=== PATIENT | female | born 1990 | race Caucasian/White ===

== ENCOUNTER 2017-08-07 12:32 | Emergency (ER) | payer MEDICAID, OTHER ==
[2017-08-07] MEDS ORDERED: Ondansetron 4 MG/2 ML SDV IVPUSH ONE ×2 (13:14→14:37)
[2017-08-07] MEDS ORDERED: Lactated Ringers 1,000 ML IV SCH (13:15)
--- NOTE | 2017-08-07 13:24 | EDM.PDOC ---
ED HPI GENERAL MEDICAL PROBLEM - General Chief Complaint: Abdominal Pain Stated Complaint: ABDOMINAL PAIN Time Seen by Provider: 08/07/17 13:05 Source of Information: Reports: Patient History Limitations: Reports: No Limitations - History of Present Illness INITIAL COMMENTS - FREE TEXT/NARRATIVE: HISTORY AND PHYSICAL: History of present illness: [Patient comes to the emergency room complaining of left lower quadrant abdominal pain. Her symptoms began at midnight last night and have continued into today. She is feeling gradually worse as the day goes on. Her pain started in the left lower part of her abdomen is gradually moving into the middle aspect. No right lower quadrant abdominal pain. Has not taken any medications for her symptoms. The pain is constant and is gradually worsening. She describes it as a sharp stabbing pain. Increased pain with taking a deep breath. Denies sore throat runny nose earaches. No recent illness or infection. She has not checked her temperature but has felt some warm flashes and chills. Feels nauseated which she rates as 7/10. Abdominal pain is 10/10. No vomiting. Had a normal bowel movement this morning. No blood in her stools. No pain with defecating. No burning with urination or blood in her urine. She denies low back pain. No muscle or joint aches or pains. She has not had anything to drink today. Is on Nexplanon for contraception. LMP was in July 2017.] Review of systems: As per history of present illness and below otherwise all systems reviewed and negative. Past medical history: As per history of present illness and as reviewed below otherwise noncontributory. Surgical history: As per history of present illness and as reviewed below otherwise noncontributory. Social history: No reported history of drug or alcohol abuse. Family history: As per history of present illness and as reviewed below otherwise noncontributory. Physical exam: HEENT: Atraumatic, normocephalic. Oral mucous members are pink and mildly dry. Neck supple, no lymphadenopathy. Lungs: Clear to auscultation, breath sounds equal bilaterally. No wheezing crackles or rales. Heart: S1S2, regular rate and rhythm. Abdomen: Bowel sounds are quiet throughout. Abdomen is soft and nondistended. She is tender with palpation over her left lower quadrant and suprapubic area. No masses guarding or rebound. No CVA tenderness. Pelvis: Stable nontender. Genitourinary: Deferred. Rectal: Deferred. Extremities: Atraumatic, negative for cords or calf pain. No cyanosis or edema to feet or lower legs. Neurovascular unremarkable. Neuro: Awake, alert, oriented. Motor and sensory unremarkable throughout. Exam nonfocal. Diagnostics: [CBC, CMP, UA, urine , amylase, lipase] Therapeutics: [1 L lactated Ringer's, Zofran 4 mg IV x2, Morphine 4mg IV, Toradol 30mg IV] Impression: [L adnexal cyst] Plan: [Discussed with patient that her lab results are completely normal, CT abdomen and pelvis shows L adnexal cyst. Alternate Tylenol and ibuprofen prn discomfort , follow up with PCP at [facility]. Strict return precautions are reviewed. All questions are answered and concerns are addressed. ] Definitive disposition and diagnosis as appropriate pending reevaluation and review of above. left lower abdominal pain Pain Score (Numeric/FACES): 10 - Related Data Allergies Allergy/AdvReac Type Severity Reaction Status Date / Time Penicillins Allergy Hives Verified 08/07/17 12:47 Sulfa (Sulfonamide Allergy Hives Verified 08/07/17 12:47 Antibiotics) Home Meds: Home Meds Implanted Control 08/07/17 [History] Sertraline [Zoloft] 100 mg PO DAILY 08/07/17 [History] Past Medical History Other OB/BYN History: Abnormal pap & LEAP Psychiatric History: Reports: Anxiety Oncologic (Cancer) History: Reports: Other (See Below) Other Oncologic History: pre cervical cancer. was removed. Other Dermatologic History: Eczema - Infectious Disease History Infectious Disease History: Reports: Chicken Pox - Past Surgical History HEENT Surgical History: Reports: Adenoidectomy, Tonsillectomy Female Surgical History: Reports: Section, LEEP Other Female Surgeries/Procedures: surgery on placenta during Social & Family History - Family History Family Medical History: Noncontributory - Tobacco Use Smoking Status *Q: Never Smoker Years of Tobacco use: 1 Used Tobacco, but Quit: Yes Month/Year Tobacco Last Used: 05/12 Second Hand Smoke Exposure: Yes - Caffeine Use Caffeine Use: Reports: Coffee, Soda, Tea - Alcohol Use Days Per Week of Alcohol Use: 0 - Recreational Drug Use Recreational Drug Use: No ED ROS GENERAL - Review of Systems Review Of Systems: ROS reveals no pertinent complaints other than HPI. ED EXAM, GI/ABD - Physical Exam Exam: See Below Course - Vital Signs Last Recorded V/S: Last Vital Signs Temp 99.4 F 08/07/17 15:29 Pulse 87 08/07/17 15:29 Resp 16 08/07/17 15:29 BP 125/72 08/07/17 15:29 Pulse Ox 100 08/07/17 15:29 - Orders/Labs/Meds Orders: Active Orders 24 hr Category Date Time Status HCG QUALITATIVE,URINE [URCHEM] Stat Lab 08/07/17 13:44 Ordered UA W/MICROSCOPIC [URIN] Stat Lab 08/07/17 13:44 Ordered Ketorolac [Toradol] Med 08/07/17 15:42 Once 30 mg IVPUSH ONETIME ONE Lactated Ringers [Ringers, Lactated] 1,000 ml Med 08/07/17 13:15 Active IV .BOLUS Medication Orders Lactated Ringer's (Ringers, Lactated) 1,000 mls @ 999 mls/hr IV .BOLUS PATSY Last Admin: 08/07/17 14:02 Dose: 999 mls/hr Labs: Laboratory Tests 08/07/17 08/07/17 08/07/17 Range/Units 13:26 13:26 13:44 WBC 10.72 (4.0-11.0) K/uL RBC 4.84 (4.30-5.90) M/uL Hgb 13.3 (12.0-16.0) g/dL Hct 39.5 (36.0-46.0) % MCV 81.6 (80.0-98.0) fL MCH 27.5 (27.0-32.0) pg MCHC 33.7 (31.0-37.0) g/dL RDW Std Deviation 41.1 (28.0-62.0) fl RDW Coeff of Radha 14 (11.0-15.0) % Plt Count 203 (150-400) K/uL MPV 10.30 (7.40-12.00) fL Neut % (Auto) 87.8 H (48.0-80.0) % Lymph % (Auto) 7.9 L (16.0-40.0) % [place] % (Auto) 4.1 (0.0-15.0) % Eos % (Auto) 0.0 (0.0-7.0) % Baso % (Auto) 0.2 (0.0-1.5) % Neut # (Auto) 9.4 H (1.4-5.7) K/uL Lymph # (Auto) 0.9 (0.6-2.4) K/uL [place] # (Auto) 0.4 (0.0-0.8) K/uL Eos # (Auto) 0.0 (0.0-0.7) K/uL Baso # (Auto) 0.0 (0.0-0.1) K/uL Nucleated RBC % 0.0 /100WBC Nucleated RBCs # 0 K/uL Sodium 136 (136-145) mmol/L Potassium 3.6 (3.5-5.1) mmol/L Chloride 101 (98-107) mmol/L Carbon Dioxide 24.7 (21.0-32.0) mmol/L BUN 9 (7.0-18.0) mg/dL Creatinine 0.7 (0.6-1.0) mg/dL Est Cr Clr Drug Dosing 110.55 mL/min Estimated GFR (MDRD) > 60.0 ml/min Glucose 109 H (74-106) mg/dL Calcium 9.3 (8.5-10.1) mg/dL Total Bilirubin 0.7 (0.2-1.0) mg/dL AST 17 (15-37) IU/L ALT 15 (14-63) IU/L Alkaline Phosphatase 67 (46-116) U/L Total Protein 7.7 (6.4-8.2) g/dL Albumin 4.3 (3.4-5.0) g/dL Globulin 3.4 (2.0-3.5) g/dL Albumin/Globulin Ratio 1.3 (1.3-2.8) Amylase 40 (25-115) U/L Lipase 113 (73-393) U/L Urine Color YELLOW Urine Appearance CLEAR Urine pH 6.0 (5.0-8.0) Ur Specific [place] 1.020 (1.001-1.035) Urine Protein NEGATIVE (NEGATIVE) mg/dL Urine Glucose (UA) NEGATIVE (NEGATIVE) mg/dL Urine Ketones 15 H (NEGATIVE) mg/dL Urine Occult Blood NEGATIVE (NEGATIVE) Urine Nitrite NEGATIVE (NEGATIVE) Urine Bilirubin NEGATIVE (NEGATIVE) Urine Urobilinogen 0.2 (<2.0) EU/dL Ur Leukocyte Esterase NEGATIVE (NEGATIVE) Urine RBC 0-1 (0-2/HPF) Urine WBC 0-1 (0-5/HPF) Ur Epithelial Cells FEW (NONE-FEW) Urine Bacteria RARE (NEGATIVE) Urine HCG, Qual (NEGATIVE) 08/07/17 Range/Units 13:44 WBC (4.0-11.0) K/uL RBC (4.30-5.90) M/uL Hgb (12.0-16.0) g/dL Hct (36.0-46.0) % MCV (80.0-98.0) fL MCH (27.0-32.0) pg MCHC (31.0-37.0) g/dL RDW Std Deviation (28.0-62.0) fl RDW Coeff of Radha (11.0-15.0) % Plt Count (150-400) K/uL MPV (7.40-12.00) fL Neut % (Auto) (48.0-80.0) % Lymph % (Auto) (16.0-40.0) % [place] % (Auto) (0.0-15.0) % Eos % (Auto) (0.0-7.0) % Baso % (Auto) (0.0-1.5) % Neut # (Auto) (1.4-5.7) K/uL Lymph # (Auto) (0.6-2.4) K/uL [place] # (Auto) (0.0-0.8) K/uL Eos # (Auto) (0.0-0.7) K/uL Baso # (Auto) (0.0-0.1) K/uL Nucleated RBC % /100WBC Nucleated RBCs # K/uL Sodium (136-145) mmol/L Potassium (3.5-5.1) mmol/L Chloride (98-107) mmol/L Carbon Dioxide (21.0-32.0) mmol/L BUN (7.0-18.0) mg/dL Creatinine (0.6-1.0) mg/dL Est Cr Clr Drug Dosing mL/min Estimated GFR (MDRD) ml/min Glucose (74-106) mg/dL Calcium (8.5-10.1) mg/dL Total Bilirubin (0.2-1.0) mg/dL AST (15-37) IU/L ALT (14-63) IU/L Alkaline Phosphatase (46-116) U/L Total Protein (6.4-8.2) g/dL Albumin (3.4-5.0) g/dL Globulin (2.0-3.5) g/dL Albumin/Globulin Ratio (1.3-2.8) Amylase (25-115) U/L Lipase (73-393) U/L Urine Color Urine Appearance Urine pH (5.0-8.0) Ur Specific [place] (1.001-1.035) Urine Protein (NEGATIVE) mg/dL Urine Glucose (UA) (NEGATIVE) mg/dL Urine Ketones (NEGATIVE) mg/dL Urine Occult Blood (NEGATIVE) Urine Nitrite (NEGATIVE) Urine Bilirubin (NEGATIVE) Urine Urobilinogen (<2.0) EU/dL Ur Leukocyte Esterase (NEGATIVE) Urine RBC (0-2/HPF) Urine WBC (0-5/HPF) Ur Epithelial Cells (NONE-FEW) Urine Bacteria (NEGATIVE) Urine HCG, Qual NEGATIVE (NEGATIVE) Meds: Medications Generic Name Dose Route Start Last Admin Trade Name Freq PRN Reason Stop Dose Admin Lactated Ringer's 1,000 mls @ 999 mls/hr 08/07/17 13:15 08/07/17 14:02 Ringers, Lactated IV 999 mls/hr .BOLUS PATSY Administration Discontinued Medications Generic Name Dose Route Start Last Admin Trade Name Freq PRN Reason Stop Dose Admin Iopamidol 85 ml 08/07/17 15:16 08/07/17 15:17 Isovue Multipack-370 (76%) IVPUSH 08/07/17 15:17 85 ml ONETIME ONE Administration Morphine Sulfate 4 mg 08/07/17 14:37 08/07/17 15:25 Morphine IVPUSH 08/07/17 14:38 4 mg ONETIME ONE Administration Ondansetron HCl 4 mg 08/07/17 13:14 08/07/17 14:04 Zofran IVPUSH 08/07/17 13:15 4 mg ONETIME ONE Administration Ondansetron HCl 4 mg 08/07/17 14:37 04/04/18 15:16 Zofran IVPUSH 08/07/17 14:38 4 mg ONETIME ONE Administration Departure - Departure Time of Disposition: 15:51 Disposition: Home, Self-Care 01 Condition: Good Clinical Impression: Adnexal cyst - Discharge Information Referrals: PCP,None [Primary Care Provider] - Forms: ED Department Discharge Additional Instructions: The following information is given to patients seen in the emergency department who are being discharged to home. This information is to outline your options for follow-up care. We provide all patients seen in our emergency department with a follow-up referral. The need for follow-up, as well as the timing and circumstances, are variable depending upon the specifics of your emergency department visit. If you don't have a primary care physician on staff, we will provide you with a referral. We always advise you to contact your personal physician following an emergency department visit to inform them of the circumstance of the visit and for follow-up with them and/or the need for any referrals to a consulting specialist. The emergency department will also refer you to a specialist when appropriate. This referral assures that you have the opportunity for follow-up care with a specialist. All of these measure are taken in an effort to provide you with optimal care, which includes your follow-up. Under all circumstances we always encourage you to contact your private physician who remains a resource for coordinating your care. When calling for follow-up care, please make the office aware that this follow-up is from your recent emergency room visit. If for any reason you are refused follow-up, please contact the [facility] emergency department at and asked to speak to the emergency department charge nurse. [facility] [address] [place] [id number] Follow-up with her local primary care provider at the clinic listed above in 48- 72 hours. Alternate Tylenol with ibuprofen. warm moist compresses may help with discomfort. Return to ER as needed as discussed. - My Orders Last 24 Hours: My Active Orders 08/07/17 13:15 Lactated Ringers [Ringers, Lactated] 1,000 ml IV .BOLUS 08/07/17 13:44 HCG QUALITATIVE,URINE [URCHEM] Stat UA W/MICROSCOPIC [URIN] Stat 08/07/17 15:42 Ketorolac [Toradol] 30 mg IVPUSH ONETIME ONE - Assessment/Plan Last 24 Hours: My Active Orders 08/07/17 13:15 Lactated Ringers [Ringers, Lactated] 1,000 ml IV .BOLUS 08/07/17 13:44 HCG QUALITATIVE,URINE [URCHEM] Stat UA W/MICROSCOPIC [URIN] Stat 08/07/17 15:42 Ketorolac [Toradol] 30 mg IVPUSH ONETIME ONE
[2017-08-07 14:28] LABS: CHLORIDE,CL 101 mmol/L (98-107); SODIUM,NA 136 mmol/L (136-145)
[2017-08-07] MEDS ORDERED: Morphine 4 MG/ML Syringe IVPUSH ONE (14:37)
[2017-08-07] MEDS ORDERED: Iopamidol 755 MG/ML 500 ML Multipack Bottle IVPUSH ONE (15:16)
--- NOTE | 2017-08-07 15:28 | CT ---
CT of the abdomen and pelvis with contrast. HISTORY: Left lower quadrant pain TECHNIQUE: Axial CT images were obtained of the abdomen and pelvis following administration of 85 mL of Isovue-370 in the right antecubital fossa without complication. Coronal and sagittal reconstructio ns obtained. FINDINGS: The lung bases are clear, no pleural effusion. The liver, spleen, adrenal glands, and pancreas appear normal. Cholelithiasis without evidence of cho lecystitis. No bulky retroperitoneal lymphadenopathy or abdominal ascites. Tiny fat-containing umbili kerrie hernia. The kidneys enhance and function symmetrically without evidence of obstructive uropathy. The large and small bowel are normal in caliber without evidence of obstruction. The appendix appears normal. No focal pericolonic inflammation or stranding. The urinary bladder is minimally filled. [place] josefina is grossly unremarkable. There is a 8.5 x 7 cm appearing left adnexal cyst. No significant free p elvic fluid. No free air. No suspicious osseous abnormalities identified. IMPRESSION: 1. Cholelithiasis without evidence of cholecystitis. 2. There is an 8.5 x 7 cm left adnexal cyst.
[2017-08-07 15:30] VITALS: BP 125/72
[2017-08-07] MEDS ORDERED: Ketorolac 30 MG/ML SDV IVPUSH ONE (15:42)
== END 2017-08-07 16:36 | disposition home or self-care (01) ==
LOC: MW.ED 12:32
DX: N83.8 Other noninflammatory disorders of ovary, fallopian tube and broad ligament (principal); Z88.2 Allergy status to sulfonamides; Z79.899 Other long term (current) drug therapy; Z87.891 Personal history of nicotine dependence
CPT/HCPCS: 36415; 74177; 80053; 81001; 81025; 82150; 83690; 85025; 96361; 96374; 96375; 96376; 99284; J1885; J2405; J7120; Q9967; 99283; J2270

== ENCOUNTER 2017-08-08 11:01 | Emergency (ER) | payer OTHER ==
[2017-08-08] MEDS ORDERED: Ketorolac 30 MG/ML SDV IVPUSH ONE ×2 (11:24→14:50)
[2017-08-08] MEDS ORDERED: Ondansetron 4 MG/2 ML SDV IVPUSH ONE (11:25)
[2017-08-08] MEDS ORDERED: Lactated Ringers 1,000 ML IV SCH (11:30)
[2017-08-08] MEDS ORDERED: Morphine 4 MG/ML Syringe IVPUSH ONE ×2 (12:06→13:38)
--- NOTE | 2017-08-08 12:09 | EDM.PDOC ---
ED HPI GENERAL MEDICAL PROBLEM - General Chief Complaint: Abdominal Pain Stated Complaint: ABD PAIN Time Seen by Provider: 08/08/17 12:00 Source of Information: Reports: Patient History Limitations: Reports: No Limitations - History of Present Illness INITIAL COMMENTS - FREE TEXT/NARRATIVE: HISTORY AND PHYSICAL: History of present illness: [Patient returns to the emergency room today after being seen yesterday for left lower quadrant abdominal pain. Her pain has worsened through the night and she now rates it at 20/10. Took 3 ibuprofen late last night and 2 Tylenol this morning. She has not had any improvement of her pain. She has used a heating pad last night which seemed to make her pain worse. CT abdomen and pelvis showed a left adnexal cyst yesterday. Labs yesterday showed a white blood cell count of 10.72, hemoglobin 13.3. UA was negative. test negative. CMP negative. Is now complaining of pain in her low back and into both hips. No fever chills. She's complaining of nausea. Has had some vaginal discharge but she doesn't know the color. Has been with her boyfriend for the past 8 years. Admits she had a new sexual partner about 4 years ago. None since.] Review of systems: As per history of present illness and below otherwise all systems reviewed and negative. Past medical history: As per history of present illness and as reviewed below otherwise noncontributory. Surgical history: As per history of present illness and as reviewed below otherwise noncontributory. Social history: No reported history of drug or alcohol abuse. Family history: As per history of present illness and as reviewed below otherwise noncontributory. Physical exam: HEENT: Atraumatic, normocephalic. Oral mucous membranes moist. Throat clear, no lymphadenopathy. Lungs: Clear to auscultation, breath sounds equal bilaterally. Heart: S1S2, regular, negative for clicks, rubs, or JVD. Abdomen: Bowel sounds are normoactive throughout. Abdomen is soft, nondistended. She is exquisitely tender with palpation over the left lower quadrant and suprapubic area. Negative for masses, guarding and rebound. Negative for costovertebral tenderness. Pelvis: Stable nontender. Genitourinary: Normal-appearing external genitalia. Cervix is visualized and is without erythema. Thick white creamy discharge present in vaginal canal and at cervical os. Swabs are taken. No cervical motion tenderness. Tender with palpation over left adnexal area. No suprapubic or right lower quadrant discomfort. Rectal: Deferred. Extremities: Atraumatic. Ambulates without difficulty. Neurovascular unremarkable. Neuro: Awake, alert, oriented. Motor and sensory unremarkable throughout. Exam nonfocal. Diagnostics: [Viral culture, trichomoniasis swab, chlamydia/gonorrhea swab, pelvic ultrasound ] Therapeutics: [Toradol 30 mg IV, Zofran 4 mg IV, morphine 4 mg IV] Impression: [L adnexal cyst] Plan: [Discussed with patient that CT scan from yesterday measured cyst at 8.5 cm x 7 cm. Pelvic ultrasound today shows a 6 cm left adnexal mass. Encouraged NSAIDs heating pad rest and close follow-up with PCP or [employer]. Rx written for hydrocodone 5/325 (#20) si po q 6-8 hours prn pain 0 RF's. Strict return precautions are reviewed.] Definitive disposition and diagnosis as appropriate pending reevaluation and review of above. Left Abdominal Pain Score (Numeric/FACES): 10 - Related Data Allergies Allergy/AdvReac Type Severity Reaction Status Date / Time Penicillins Allergy Hives Verified 08/07/17 12:47 Sulfa (Sulfonamide Allergy Hives Verified 08/07/17 12:47 Antibiotics) Home Meds: Home Meds Implanted Control 08/07/17 [History] Sertraline [Zoloft] 100 mg PO DAILY 08/07/17 [History] Past Medical History Other OB/BYN History: Abnormal pap & LEAP Psychiatric History: Reports: Anxiety Oncologic (Cancer) History: Reports: Other (See Below) Other Oncologic History: pre cervical cancer. was removed. Other Dermatologic History: Eczema - Infectious Disease History Infectious Disease History: Reports: Chicken Pox - Past Surgical History HEENT Surgical History: Reports: Adenoidectomy, Tonsillectomy Female Surgical History: Reports: Section, LEEP Other Female Surgeries/Procedures: surgery on placenta during Social & Family History - Family History Family Medical History: Noncontributory - Tobacco Use Smoking Status *Q: Never Smoker Years of Tobacco use: 1 Used Tobacco, but Quit: Yes Month/Year Tobacco Last Used: 05/12 Second Hand Smoke Exposure: Yes - Caffeine Use Caffeine Use: Reports: Coffee, Soda, Tea - Alcohol Use Days Per Week of Alcohol Use: 0 - Recreational Drug Use Recreational Drug Use: No ED ROS GENERAL - Review of Systems Review Of Systems: ROS reveals no pertinent complaints other than HPI. ED EXAM, GI/ABD - Physical Exam Exam: See Below Course - Vital Signs Last Recorded V/S: Last Vital Signs Temp 98.1 F 08/08/17 15:00 Pulse 69 08/08/17 15:00 Resp 18 08/08/17 15:00 BP 124/81 08/08/17 15:00 Pulse Ox 97 08/08/17 15:00 - Orders/Labs/Meds Orders: Active Orders 24 hr Category Date Time Status Pelvis Non OB Comp [US] Stat Exams 08/08/17 13:01 Taken CHLAMYDIA AND GONORRHEA BY TMA Stat Lab 08/08/17 13:01 Received CULTURE GENITAL [RM] Stat Lab 08/08/17 13:01 Received URINALYSIS W/MICROSCOPIC [UA W/MICROSCOPIC] [URIN] Stat Lab 08/08/17 11:52 Ordered Lactated Ringers [Ringers, Lactated] 1,000 ml Med 08/08/17 11:30 Active IV .BOLUS Medication Orders Lactated Ringer's (Ringers, Lactated) 1,000 mls @ 999 mls/hr IV .BOLUS PATSY Last Admin: 08/08/17 11:45 Dose: 999 mls/hr Labs: Laboratory Tests 08/08/17 08/08/17 Range/Units 11:52 13:01 Urine Color YELLOW Urine Appearance SLT CLOUDY Urine pH 6.0 (5.0-8.0) Ur Specific [place] 1.025 (1.001-1.035) Urine Protein NEGATIVE (NEGATIVE) mg/dL Urine Glucose (UA) NEGATIVE (NEGATIVE) mg/dL Urine Ketones NEGATIVE (NEGATIVE) mg/dL Urine Occult Blood NEGATIVE (NEGATIVE) Urine Nitrite NEGATIVE (NEGATIVE) Urine Bilirubin NEGATIVE (NEGATIVE) Urine Urobilinogen 0.2 (<2.0) EU/dL Ur Leukocyte Esterase NEGATIVE (NEGATIVE) Urine RBC 0-1 (0-2/HPF) Urine WBC 0-2 (0-5/HPF) Ur Epithelial Cells FEW (NONE-FEW) Urine Bacteria FEW (NEGATIVE) Urine Mucus LIGHT (NONE-MOD) Chana species DNA NEGATIVE (NEGATIVE) Gardnerella DNA Probe NEGATIVE (NEGATIVE) Trichomonas DNA Probe NEGATIVE (NEGATIVE) Meds: Medications Generic Name Dose Route Start Last Admin Trade Name Freigor PRN Reason Stop Dose Admin Lactated Ringer's 1,000 mls @ 999 mls/hr 08/08/17 11:30 08/08/17 11:45 Ringers, Lactated IV 999 mls/hr .BOLUS PATSY Administration Discontinued Medications Generic Name Dose Route Start Last Admin Trade Name Noel PRN Reason Stop Dose Admin Ketorolac Tromethamine 30 mg 08/08/17 11:24 08/08/17 11:49 Toradol IVPUSH 08/08/17 11:25 30 mg ONETIME ONE Administration Ketorolac Tromethamine 30 mg 08/08/17 14:50 08/08/17 15:02 Toradol IVPUSH 08/08/17 14:51 30 mg ONETIME ONE Administration Morphine Sulfate 4 mg 08/08/17 12:06 08/08/17 12:16 Morphine IVPUSH 08/08/17 12:07 4 mg ONETIME ONE Administration Morphine Sulfate 4 mg 08/08/17 13:38 08/08/17 14:16 Morphine IVPUSH 08/08/17 13:39 4 mg ONETIME ONE Administration Ondansetron HCl 4 mg 08/08/17 11:25 08/08/17 11:47 Zofran IVPUSH 08/08/17 11:26 4 mg ONETIME ONE Administration Departure - Departure Time of Disposition: 14:50 Disposition: Home, Self-Care 01 Condition: Good Clinical Impression: Adnexal cyst - Discharge Information Instructions: Ovarian Cyst, [id number] Referrals: PCP,None [Primary Care Provider] - Forms: ED Department Discharge Additional Instructions: The following information is given to patients seen in the emergency department who are being discharged to home. This information is to outline your options for follow-up care. We provide all patients seen in our emergency department with a follow-up referral. The need for follow-up, as well as the timing and circumstances, are variable depending upon the specifics of your emergency department visit. If you don't have a primary care physician on staff, we will provide you with a referral. We always advise you to contact your personal physician following an emergency department visit to inform them of the circumstance of the visit and for follow-up with them and/or the need for any referrals to a consulting specialist. The emergency department will also refer you to a specialist when appropriate. This referral assures that you have the opportunity for follow-up care with a specialist. All of these measure are taken in an effort to provide you with optimal care, which includes your follow-up. Under all circumstances we always encourage you to contact your private physician who remains a resource for coordinating your care. When calling for follow-up care, please make the office aware that this follow-up is from your recent emergency room visit. If for any reason you are refused follow-up, please contact the [facility] emergency department at and asked to speak to the emergency department charge nurse. [facility] Primary care - Women's [facility] [address] [place] [id number] Follow-up at the clinic listed above or with your regular provider in 48-72 hours. You may take ibuprofen 200 mg after 7 PM this evening. 3 tablets every 6 hours. You may take acetaminophen or hydrocodone but not both, because hydrocodone contains acetaminophen. Return to ER as needed as discussed. - My Orders Last 24 Hours: My Active Orders 08/08/17 11:30 Lactated Ringers [Ringers, Lactated] 1,000 ml IV .BOLUS 08/08/17 11:52 URINALYSIS W/MICROSCOPIC [UA W/MICROSCOPIC] [URIN] Stat 08/08/17 13:01 Pelvis Non OB Comp [US] Stat CHLAMYDIA AND GONORRHEA BY TMA Stat CULTURE GENITAL [RM] Stat - Assessment/Plan Last 24 Hours: My Active Orders 08/08/17 11:30 Lactated Ringers [Ringers, Lactated] 1,000 ml IV .BOLUS 08/08/17 11:52 URINALYSIS W/MICROSCOPIC [UA W/MICROSCOPIC] [URIN] Stat 08/08/17 13:01 Pelvis Non OB Comp [US] Stat CHLAMYDIA AND GONORRHEA BY TMA Stat CULTURE GENITAL [RM] Stat
[2017-08-08 17:54] VITALS: BP 121/79
--- NOTE | 2017-08-09 14:02 | US ---
EXAM DATE: 08/08/17 PATIENT'S AGE: 27 Patient: MINGO WALTON Facility: [place], [place] Site . Site : 1992 Study: US Pelvis Left cyst seen on ct-08/08/2017 1:41:24 PM Ordering Physician: Doctor Cash Final Report: INDICATION: Left-sided pelvic pain TECHNIQUE: Ultrasound pelvis transabdominal. Real-time sonographic images with color Doppler imaging of the ovaries were obtained. COMPARISON: None. FINDINGS: Uterus: 10 x 6 x 4 cm. Normal echotexture of the myometrium. No masses. Endometrium: 6 mm in thickness. No sign of endometrial mass or fluid. Right ovary measures 4 x 2 x 2 cm and left ovary measures 4 x 4 x 3 cm. Large simple left ovarian or parovarian cyst measures approximately 6 cm. No other ovarian or adnexal lesion. Cul-de-sac: No significant free fluid. IMPRESSION: Large simple 6 cm left ovarian or parovarian cyst without evidence of rupture. Remainder of the exam is normal. Dictated by Jalil Cruz MD @ Aug 08 2017 1:43PM (Electronic Signature) Report Signed by Proxy. EMERSON
== END 2017-08-08 15:20 | disposition home or self-care (01) ==
LOC: MW.ED 11:01
DX: N83.8 Other noninflammatory disorders of ovary, fallopian tube and broad ligament (principal); F41.9 Anxiety disorder, unspecified; Z88.2 Allergy status to sulfonamides; Z79.899 Other long term (current) drug therapy; Z87.891 Personal history of nicotine dependence; Z88.0 Allergy status to penicillin
CPT/HCPCS: 76856; 81001; 87070; 87480; 87491; 87510; 87591; 87660; 96365; 96375; 96376; 99284; J1885; J2270; J2405; J7120; 99283

== ENCOUNTER 2018-08-12 08:10 | Day surgery (SDC) | payer MEDICAID, OTHER ==
[~2018-08-12 08:10] MED LIST: Clindamycin Phosphate in D5W 600 MG in Premix Bag 50 BAG IV ONE; Dexamethasone 4 MG/ML 5 ML MDV ONE; Glycopyrrolate 0.2 MG/ML SDV ONE; Lactated Ringers 1,000 ML IV SCH; Midazolam 1 MG/ML 2 ML SDV ONE; Neostigmine Methylsulfate 1 MG/ML 5 ML Syringe ONE; Ondansetron 4 MG/2 ML SDV ONE; Propofol 200 MG/20 ML SDV ONE; Sodium Chloride 0.9% 10 ML SDV IV PRN; Sodium Chloride 0.9% 10 ML Syringe FLUSH PRN; Sodium Chloride 0.9% 2.5 ML Syringe FLUSH PRN; Succinylcholine 200 MG/10 ML MDV ONE
[2018-08-12] MEDS ORDERED: fentaNYL 250 MCG/5 ML SDV ONE (08:41)
[2018-08-12] MEDS ORDERED: Clindamycin Phosphate in D5W 600 MG in Premix Bag 50 BAG IV ONE ×2 (08:55)
[2018-08-12] MEDS ORDERED: Scopolamine 1.5 MG Transdermal Patch TRDERM PRN (09:16)
--- NOTE | 2018-08-12 09:16 | PCM.PREANE ---
Preanesthetic Assessment - Anesthesia/Transfusion/Family Hx Anesthesia History: Prior Anesthesia Reaction Other Type of Anesthesia Reaction Comment: hx: motion sickness, Denies any known problem with anesthesia in past Family History of Anesthesia Reaction: No Transfusion History: No Prior Transfusion(s) - Review of Systems General: No Symptoms Pulmonary: No Symptoms Cardiovascular: No Symptoms Gastrointestinal: No Symptoms Neurological: No Symptoms Other: Reports: None - Physical Assessment NPO Status Date: 08/11/18 Height: 5 ft 5 in Weight: 82.1 kg ASA Class: 2 Mental Status: Alert & Oriented x3 Airway Class: Mallampati = 2 ROM/Head Extension: Full Lungs: Clear to Auscultation, Normal Respiratory Effort Cardiovascular: Regular Rate, Regular Rhythm - Lab Values: Laboratory Last Values Urine HCG, Qual NEGATIVE (NEGATIVE) 08/12/18 08:20 - Allergies Allergies/Adverse Reactions: Allergies Allergy/AdvReac Type Severity Reaction Status Date / Time Penicillins Allergy Hives Verified 08/07/18 14:56 Sulfa (Sulfonamide Allergy Hives Verified 08/07/18 14:56 Antibiotics) - Blood Blood Available: No - Anesthesia Plan Pre-Op Medication Ordered: None - Acknowledgements Anesthesia Type Planned: General Anesthesia Pt an Appropriate Candidate for the Planned Anesthesia: Yes Alternatives and Risks of Anesthesia Discussed w Pt/Guardian: Yes Pt/Guardian Understands and Agrees with Anesthesia Plan: Yes PreAnesthesia Questionnaire HEENT History: Reports: Other (See Below) Other HEENT History: wears glasses 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 was removed. 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 Male Surgical History: Musculoskeletal Surgical History: Reports: Other (See Below) Other Musculoskeletal Surgeries/Procedures:: removal of benign tumor from chest - SUBSTANCE USE Smoking Status *Q: Never Smoker Recreational Drug Use History: No - HOME MEDS Home Medications: Home Meds DULoxetine HCl [Cymbalta] 30 mg PO BEDTIME 08/07/18 [History] DULoxetine HCl [Cymbalta] 60 mg PO BEDTIME 08/07/18 [History] Levonorgestrel-Ethin Estradiol [Falmina-28 Tablet] 1 tab PO DAILY 08/07/18 [ History] SUMAtriptan Succinate [Imitrex] 50 mg PO Q2H PRN MDD 200 mg 08/07/18 [History] - CURRENT (IN HOUSE) MEDS Current Meds: Current Medications Lactated Ringer's (Ringers, Lactated) 1,000 mls @ 125 mls/hr IV ASDIRECTED PATSY Clindamycin Phosphate 600 mg/ (Premix) 50 mls @ 100 mls/hr IV ONETIME ONE Stop: 08/12/18 09:24 Sodium Chloride (Saline Flush) 10 ml FLUSH ASDIRECTED PRN PRN Reason: Keep Vein Open Sodium Chloride (Saline Flush) 2.5 ml FLUSH ASDIRECTED PRN PRN Reason: Keep Vein Open Sodium Chloride (Normal Saline) 10 ml IV ASDIRECTED PRN PRN Reason: IV Use Discontinued Medications Dexamethasone (Dexamethasone) Confirm Administered Dose 20 mg .ROUTE .STK-MED ONE Stop: 08/12/18 07:43 Fentanyl (Sublimaze) Confirm Administered Dose 250 mcg .ROUTE .STK-MED ONE Stop: 08/12/18 08:42 Glycopyrrolate (Robinul) Confirm Administered Dose 0.4 mg .ROUTE .STK-MED ONE Stop: 08/12/18 07:44 Clindamycin Phosphate 600 mg/ (Premix) 50 mls @ 100 mls/hr IV ONETIME ONE Stop: 08/11/18 11:15 Last Admin: 08/12/18 09:01 Dose: 100 mls/hr Lidocaine HCl (Xylocaine-Mpf 1%) Confirm Administered Dose 5 mls @ as directed .ROUTE .STK-MED ONE Stop: 08/12/18 07:43 Midazolam HCl (Versed 1 Mg/Ml) Confirm Administered Dose 2 mg .ROUTE .STK-MED ONE Stop: 08/12/18 07:43 Neostigmine Methylsulfate (Neostigmine) Confirm Administered Dose 5 mg .ROUTE .STK-MED ONE Stop: 08/12/18 07:44 Ondansetron HCl (Zofran) Confirm Administered Dose 4 mg .ROUTE .STK-MED ONE Stop: 08/12/18 07:43 Propofol (Diprivan 20 Ml) Confirm Administered Dose 200 mg .ROUTE .STK-MED ONE Stop: 08/12/18 07:43 Succinylcholine Chloride (Quelicin) Confirm Administered Dose 200 mg .ROUTE .STK -MED ONE Stop: 08/12/18 07:44
[2018-08-12] MEDS ORDERED: Scopolamine 1.5 MG Transdermal Patch ONE (09:19)
[2018-08-12] MEDS ORDERED: Bupivacaine 0.5% 30 ML SDV ONE (09:45)
[2018-08-12] MEDS ORDERED: Mineral Oil/Petrolatum Ophth Oint 3.5 GM Tube ONE (10:20)
[2018-08-12] MEDS ORDERED: fentaNYL 100 MCG/2 ML SDV IVPUSH PRN (10:55)
[2018-08-12] MEDS ORDERED: Glycopyrrolate 0.2 MG/ML SDV ONE (11:15)
[2018-08-12] MEDS ORDERED: Ketorolac 30 MG/ML SDV ONE (11:29)
[2018-08-12] MEDS ORDERED: HYDROmorphone 2 MG/ML Syringe ONE (11:36)
[2018-08-12] MEDS ORDERED: Sodium Chloride 0.9% 20 ML ONE (11:37)
[2018-08-12] MEDS ORDERED: Octyl 2-Cyanoacrylate 1 Tube ONE ×2 (12:34→12:46)
--- NOTE | 2018-08-12 12:55 | PCM.OPNOTE ---
- General Post-Op/Procedure Note Date of Surgery/Procedure: 08/12/18 Operative Procedure(s): laproscopic cholecystectomy and umbilical hernia repair Findings: chronic cholecystitis secondary to cholelithiasis and 1mm umbilical hernia Pre Op Diagnosis: cholelithiasis, umbilical hernia Post-Op Diagnosis: same Anesthesia Technique: General ET Tube Primary Surgeon: Meenakshi Rodriguez Secondary Surgeon: Lisa Gill Pathology: gallbladder Fluid Replacement, Intraop: 1,800 Output, Urine Amount: 75 EBL in mLs: 10 Condition: Good
[2018-08-12] MEDS ORDERED: Acetaminophen/oxyCODONE 325-5 MG Tab PO PRN (13:19)
--- NOTE | 2018-08-12 13:55 | PCM.POSTAN ---
POST ANESTHESIA ASSESSMENT - MENTAL STATUS Mental Status: Alert, Oriented - RESPIRATORY Respiratory Status: Respiratory Rate WNL, Airway Patent, O2 Saturation Stable - CARDIOVASCULAR CV Status: Pulse Rate WNL, Blood Pressure Stable - GASTROINTESTINAL GI Status: No Symptoms - POST OP HYDRATION Hydration Status: Adequate & Stable
--- NOTE | 2018-08-12 15:37 | PCM48HPAN ---
Post Anesthesia Note - EVALUATION WITHIN 48HRS OF ANESTHETIC Vital Signs in Normal Range: Yes Patient Participated in Evaluation: Yes Respiratory Function Stable: Yes Airway Patent: Yes Cardiovascular Function Stable: Yes Hydration Status Stable: Yes Pain Control Satisfactory: Yes Nausea and Vomiting Control Satisfactory: Yes Mental Status Recovered: Yes Resp Rate: 16
[2018-08-12 16:09] VITALS: BP 119/73
--- NOTE | 2018-08-12 17:35 | OR ---
SURGEON: AMPARO ESPINOZA MD DATE OF PROCEDURE: 08/12/2018 PREOPERATIVE DIAGNOSES: 1. Umbilical hernia. 2. Cholelithiasis. POSTOPERATIVE DIAGNOSES: 1. Umbilical hernia. 2. Chronic cholecystitis with calculous. PROCEDURE PERFORMED: 1. Umbilical hernia repair. 2. Laparoscopic cholecystectomy. ROVING TELLER: Long Distance Operator: Lisa Gill DO. ANESTHESIA: General endotracheal anesthesia. FLUIDS: 1800 mL of crystalloid. URINE OUTPUT: 75 mL. ESTIMATED BLOOD LOSS: 10 mL. FINDINGS: 1 mm periumbilical hernia just at the root of the umbilical stalk. Chronic cholecystitis with gallstones within the gallbladder. COMPLICATIONS: None. INDICATIONS: The patient is a 28-year-old female who came to my office with complaints of a periumbilical hernia that was symptomatic. She has had a CT scan of the abdomen and pelvis that showed large gallstones within her gallbladder. We discussed the need for both an umbilical hernia repair as well as a cholecystectomy. I explained the procedures, their expected perioperative course, and the risks including bleeding, infection, or damage to surrounding structures. The patient verbalized understanding and wishes to proceed. PROCEDURE IN DETAIL: The patient was brought into the OR and placed on the OR table in supine position. A time-out was completed verifying the patient's name, age, date of , allergies, and procedure to be performed. General endotracheal anesthesia was induced. The left arm was tucked to the patient's side and a Burroughs catheter placed. The abdomen was prepped and draped in usual standard fashion. I anesthetized the right side of the umbilicus with 0.5% Marcaine plain. A curvilinear right lateral incision was made using a 15 blade. I then used cautery to dissect down to the level of subcutaneous fat. Using a combination of sharp dissection with the Metzenbaum scissors and blunt dissection, I isolated the umbilical stalk. There was a small hernia sac just to the right of the umbilicus consistent with the preoperative CT findings. I dissected this out to the level of the fascia. I then transected it and passed it off the field. It was sent to Pathology, labeled as hernia sac. The fascial defect was less than 1 mm in size. Given its small size, I decided to enter the abdomen in a separate location. I turned my attention to the fascia below the umbilical stalk. I elevated it with Iván's and incised it sharply using a curved Muller scissors. I then grasped the peritoneum underlying it, elevated with hemostats, and incised it sharply with Metzenbaum scissors. Entry into the abdomen was palpated. I felt underneath the umbilicus and did not feel a definitive hernia defect. Just above the umbilicus, however, I could feel the patient's diastasis recti which was apparent on her CT preoperatively. I placed a 12 mm Manoj trocar into the abdomen and insufflated it with CO2. I then placed a 5 mm 30 degree scope into the abdomen and inspected the area underneath my initial operative site. There was no damage noted to surrounding structures. The patient was placed in reverse Trendelenburg position and airplaned slightly to the left. I then placed 5 mm trocars under direct visualization in the following locations; one in the epigastric area, one in the right flank, and one 2 fingerbreadths below the right subcostal margin in the midclavicular line. I then grasped the dome of the gallbladder with an atraumatic grasper and lifted it cranially. There was some flimsy omental adhesions to the body of the gallbladder. These were taken down using a [place] dissector and hook cautery. I then grabbed the infundibulum and using combination of blunt dissection and hook cautery, I dissected out the cystic duct and artery. Once I could clearly identify these structures and had cleared away one-third of the cystic plate, I triply clipped and ligated the cystic duct, then doubly clipped and ligated the cystic artery. Using electrocautery, I then took down the remainder of the attachments of the gallbladder to the cystic plate. Once the gallbladder was freed from the liver bed, I placed an EndoCatch bag and removed it through the infraumbilical port site. I placed the Manoj trocar back into the abdomen and inspected my operative field. It was hemostatic and the clips appeared to be in good place with no evidence of bile leakage. I used a small amount of irrigation to irrigate around the operative field and suctioned this out. I then removed the 5 mm trocars under direct visualization and allowed the abdomen to desufflate. I then turned my attention to my periumbilical incision. I closed the hernia defect with a [id number] 0 Ethibond suture. Her fascia was thin and tenuous, so I decided to close my infraumbilical incision site with a [id number] 0 Ethibond suture as well. This adequately closed the fascia. I then closed the subcutaneous fat layer with interrupted 3-0 Vicryl along the incision. The skin was then closed with a running 4-0 Monocryl suture. The 5 mm trocar sites were closed with interrupted 4-0 Monocryl suture. Dermabond and sterile dressings were applied. The patient tolerated the procedure well and was taken to PACU in stable condition. All counts were complete and correct at the end of the case. MELANIA HOLDER /[id number]
== END 2018-08-12 15:50 | disposition home or self-care (01) ==
LOC: MW.SDS 08:10
PROVIDERS: ATTEND Surgery
DX: K80.10 Calculus of gallbladder with chronic cholecystitis without obstruction (principal); K42.9 Umbilical hernia without obstruction or gangrene; F41.9 Anxiety disorder, unspecified; F32.9 Major depressive disorder, single episode, unspecified; G43.909 Migraine, unspecified, not intractable, without status migrainosus; N83.292 Other ovarian cyst, left side; Z88.0 Allergy status to penicillin; Z88.2 Allergy status to sulfonamides; Z79.899 Other long term (current) drug therapy
CPT/HCPCS: 47562; 81025; 88302; 88304; A9270; J0131; J0330; J1100; J1170; J1885; J2001; J2250; J2405; J2704; J3010; J3490

== ENCOUNTER 2018-11-16 13:04 | Emergency (ER) | payer OTHER ==
[2018-11-16 13:52] VITALS: BP 150/93
--- NOTE | 2018-11-16 13:56 | EDM.PDOC ---
ED HPI GENERAL MEDICAL PROBLEM - General Chief Complaint: Abdominal Pain Stated Complaint: STOMACH PAIN Time Seen by Provider: 11/16/18 13:09 Source of Information: Reports: Patient History Limitations: Reports: No Limitations - History of Present Illness INITIAL COMMENTS - FREE TEXT/NARRATIVE: History of present illness: []Patient has a history of ovarian cysts and states she has left lower pelvic pain that feels like a previous cyst. He is unaware if she is started denies any fevers, chills, nausea, vomiting, diarrhea, vaginal discharge or pain with urination. Review of systems: As per history of present illness and below otherwise all systems reviewed and negative. Past medical history: As per history of present illness and as reviewed below otherwise noncontributory. Surgical history: As per history of present illness and as reviewed below otherwise noncontributory. Social history: No reported history of drug or alcohol abuse. Family history: As per history of present illness and as reviewed below otherwise noncontributory. Physical exam: General: Well developed, well nourished in NAD HEENT: Atraumatic, normocephalic, pupils reactive, negative for conjunctival pallor or scleral icterus, mucous membranes moist, throat clear, neck supple, nontender, trachea midline. Lungs: Clear to auscultation, breath sounds equal bilaterally, chest nontender. Heart: S1S2, regular, negative for clicks, rubs, or JVD. Abdomen: NABS, Soft, nondistended, nontender. Negative for masses or hepatosplenomegaly. Negative for costovertebral tenderness. Pelvis: Stable nontender. Genitourinary: Deferred. Rectal: Deferred. Extremities: Atraumatic, negative for cords or calf pain. Neurovascular unremarkable. Neuro: Awake, alert, oriented. Cranial nerves II through XII unremarkable. Cerebellum unremarkable. Motor and sensory unremarkable throughout. Exam nonfocal. Skin:warm and dry Diagnostics: CBC normal, UA negative, hCG negative Therapeutics: Toradol for pain ED Course: Stable Impression: Left Sided Pelvic pain Prescriptions: None Plan: Take meds as directed, follow up with your primary care physician, return to ER if symptoms worsen or change. Definitive disposition and diagnosis as appropriate pending reevaluation and review of above. Left Pelvic Pain Score (Numeric/FACES): 8 - Related Data Allergies Allergy/AdvReac Type Severity Reaction Status Date / Time Penicillins Allergy Hives Verified 11/16/18 13:52 Sulfa (Sulfonamide Allergy Hives Verified 11/16/18 13:52 Antibiotics) Home Meds: Home Meds DULoxetine HCl [Cymbalta] 30 mg PO BEDTIME 08/07/18 [History] DULoxetine HCl [Cymbalta] 60 mg PO BEDTIME 08/07/18 [History] Levonorgestrel-Ethin Estradiol [Falmina-28 Tablet] 1 tab PO DAILY 08/07/18 [ History] SUMAtriptan Succinate [Imitrex] 50 mg PO Q2H PRN MDD 200 mg 08/07/18 [History] Past Medical History HEENT History: Reports: Other (See Below) Other HEENT History: wears glasses 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 was removed. 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 Male Surgical History: Musculoskeletal Surgical History: Reports: Other (See Below) Other Musculoskeletal Surgeries/Procedures:: removal of benign tumor from chest Social & Family History - Family History Family Medical History: Noncontributory - Caffeine Use Caffeine Use: Reports: Coffee, Soda, Tea ED ROS GENERAL - Review of Systems Review Of Systems: See Below ED EXAM, RENAL/ - Physical Exam Exam: See Below Course - Vital Signs Last Recorded V/S: Last Vital Signs Temp 97.5 F 11/16/18 13:49 Pulse 91 11/16/18 13:49 Resp 18 11/16/18 13:49 BP 150/93 H 11/16/18 13:49 Pulse Ox 99 11/16/18 13:49 - Orders/Labs/Meds Orders: Active Orders 24 hr Category Date Time Status Ketorolac [Toradol] Med 11/16/18 14:24 Once 60 mg IM ONETIME ONE Labs: Laboratory Tests 11/16/18 11/16/18 11/16/18 Range/Units 13:58 13:58 14:05 WBC 6.48 (4.0-11.0) K/uL RBC 4.79 (4.30-5.90) M/uL Hgb 13.9 (12.0-16.0) g/dL Hct 41.5 (36.0-46.0) % MCV 86.6 (80.0-98.0) fL MCH 29.0 (27.0-32.0) pg MCHC 33.5 (31.0-37.0) g/dL RDW Std Deviation 43.7 (28.0-62.0) fl RDW Coeff of Radha 14 (11.0-15.0) % Plt Count 200 (150-400) K/uL MPV 10.30 (7.40-12.00) fL Neut % (Auto) 61.3 (48.0-80.0) % Lymph % (Auto) 30.9 (16.0-40.0) % Duval % (Auto) 7.3 (0.0-15.0) % Eos % (Auto) 0.0 (0.0-7.0) % Baso % (Auto) 0.5 (0.0-1.5) % Neut # (Auto) 4.0 (1.4-5.7) K/uL Lymph # (Auto) 2.0 (0.6-2.4) K/uL Duval # (Auto) 0.5 (0.0-0.8) K/uL Eos # (Auto) 0.0 (0.0-0.7) K/uL Baso # (Auto) 0.0 (0.0-0.1) K/uL Nucleated RBC % 0.0 /100WBC Nucleated RBCs # 0 K/uL Urine Color YELLOW Urine Appearance CLEAR Urine pH 6.5 (5.0-8.0) Ur Specific Bussey <= 1.005 (1.001-1.035) Urine Protein NEGATIVE (NEGATIVE) mg/dL Urine Glucose (UA) NEGATIVE (NEGATIVE) mg/dL Urine Ketones NEGATIVE (NEGATIVE) mg/dL Urine Occult Blood NEGATIVE (NEGATIVE) Urine Nitrite NEGATIVE (NEGATIVE) Urine Bilirubin NEGATIVE (NEGATIVE) Urine Urobilinogen 0.2 (<2.0) EU/dL Ur Leukocyte Esterase NEGATIVE (NEGATIVE) Urine RBC 0-1 (0-2/HPF) Urine WBC 0-1 (0-5/HPF) Ur Epithelial Cells OCCASIONAL (NONE-FEW) Urine Bacteria RARE (NEGATIVE) Urine HCG, Qual NEGATIVE (NEGATIVE) Departure - Departure Time of Disposition: 14:27 Disposition: Home, Self-Care 01 Condition: Good Clinical Impression: Pelvic pain - Discharge Information *PRESCRIPTION DRUG MONITORING PROGRAM REVIEWED*: No *COPY OF PRESCRIPTION DRUG MONITORING REPORT IN PATIENT JOEY: No Referrals: PCP,Unknown [Primary Care Provider] - Forms: ED Department Discharge Additional Instructions: The following information is given to patients seen in the emergency department who are being discharged to home. This information is to outline your options for follow-up care. We provide all patients seen in our emergency department with a follow-up referral. The need for follow-up, as well as the timing and circumstances, are variable depending upon the specifics of your emergency department visit. If you don't have a primary care physician on staff, we will provide you with a referral. We always advise you to contact your personal physician following an emergency department visit to inform them of the circumstance of the visit and for follow-up with them and/or the need for any referrals to a consulting specialist. The emergency department will also refer you to a specialist when appropriate. This referral assures that you have the opportunity for follow-up care with a specialist. All of these measure are taken in an effort to provide you with optimal care, which includes your follow-up. Under all circumstances we always encourage you to contact your private physician who remains a resource for coordinating your care. When calling for follow-up care, please make the office aware that this follow-up is from your recent emergency room visit. If for any reason you are refused follow-up, please contact the [facility] Emergency Department at and asked to speak to the emergency department charge nurse. Ibuprofen, warm packs to abdomen, follow-up with women's health. [facility] - Women[facility] [address] [place] [id number] - My Orders Last 24 Hours: My Active Orders 11/16/18 14:24 Ketorolac [Toradol] 60 mg IM ONETIME ONE - Assessment/Plan Last 24 Hours: My Active Orders 11/16/18 14:24 Ketorolac [Toradol] 60 mg IM ONETIME ONE
[2018-11-16] MEDS ORDERED: Ketorolac 60 MG/2 ML SDV IM ONE (14:24)
== END 2018-11-16 14:52 | disposition home or self-care (01) ==
LOC: MW.ED 13:04
DX: R10.2 Pelvic and perineal pain (principal); F32.9 Major depressive disorder, single episode, unspecified; F41.9 Anxiety disorder, unspecified; Z88.0 Allergy status to penicillin; Z88.2 Allergy status to sulfonamides; Z79.899 Other long term (current) drug therapy; Z98.890 Other specified postprocedural states
CPT/HCPCS: 36415; 81001; 81025; 85025; 96372; 99284; J1885

== ENCOUNTER 2019-04-25 16:37 | Emergency (ER) | payer MEDICAID, OTHER ==
--- NOTE | 2019-04-25 17:23 | EDM.PDOC ---
ED HPI GENERAL MEDICAL PROBLEM - General Chief Complaint: TIMBER KILLER Problem Stated Complaint: NON STOP BLEEDING Time Seen by Provider: 04/25/19 17:23 Source of Information: Reports: Patient History Limitations: Reports: No Limitations - History of Present Illness INITIAL COMMENTS - FREE TEXT/NARRATIVE: HISTORY AND PHYSICAL: History of present illness: Patient is a 29-year-old female presents to the ED With concern of bleeding. She states she had a Bartholin cyst removed yesterday by doctor Neda. She states this morning she took the packing out and since then she has been bleeding constantly for the past hour. She states she soaked through a couple of pads prior to arrival to the ED. She denies fevers, chills, nausea, vomiting , abdominal pain, chest pain, shortness of breath, dizziness. Review of systems: As per history of present illness and below otherwise all systems reviewed and negative. Past medical history: As per history of present illness and as reviewed below otherwise noncontributory. Surgical history: As per history of present illness and as reviewed below otherwise noncontributory. Social history: No reported history of drug or alcohol abuse. Family history: As per history of present illness and as reviewed below otherwise noncontributory. Physical exam: General: Patient sitting comfortably in no acute distress and nontoxic appearing HEENT: Atraumatic, normocephalic, pupils reactive, negative for conjunctival pallor or scleral icterus, mucous membranes moist, throat clear, neck supple, nontender, trachea midline. No meningeal signs. Lungs: Clear to auscultation, breath sounds equal bilaterally, chest nontender. Heart: S1S2, regular, negative for clicks, rubs, or overt murmur. Abdomen: Soft, nondistended, nontender. Negative for masses or hepatosplenomegaly. Negative for costovertebral tenderness. No rigidity, rebound , guarding. Pelvis: Stable nontender. Genitourinary: There is an area of excised skin to the left lower labia that is clotted off without active bleeding. Rectal: Deferred. Extremities: Atraumatic, negative for cords or calf pain. Neurovascular unremarkable. Neuro: Awake, alert, oriented. Cranial nerves II through XII unremarkable. Cerebellum unremarkable. Motor and sensory unremarkable throughout. Exam nonfocal. Notes: Diagnostics: none Therapeutics: none Prescriptions: none Impression: Medical screening exam, wound re-check Plan: Follow up with psych rn Return to ED as needed as discussed Definitive disposition and diagnosis as appropriate pending reevaluation and review of above. Lower Abdomen Pain Score (Numeric/FACES): 5 - Related Data Allergies Allergy/AdvReac Type Severity Reaction Status Date / Time Penicillins Allergy Hives Verified 04/25/19 16:56 Sulfa (Sulfonamide Allergy Hives Verified 04/25/19 16:56 Antibiotics) Home Meds: Home Meds Non-Formulary Medication [NF Drug] 1 each PO DAILY 04/25/19 [History] Past Medical History HEENT History: Reports: Other (See Below) Other HEENT History: wears glasses TIMBER KILLER History: Reports: , Other (See Below) Other TIMBER KILLER History: hx of pre-eclampsia, currently has ovarian cyst- taking hormone therapy Musculoskeletal History: Reports: Back Pain, Chronic Neurological History: Reports: Migraines, Other (See Below) Other Neuro History: hx of motion sickness Psychiatric History: Reports: Anxiety, Depression, PTSD Endocrine/Metabolic History: Reports: Other (See Below) Other Endocrine/Metabolic History: states pre-diabetic, no medication Oncologic (Cancer) History: Reports: Other (See Below) Other Oncologic History: pre cervical cancer. was removed. 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 ED EXAM, RENAL/ - Physical Exam Exam: See Below (see dictation) Course - Vital Signs Last Recorded V/S: Last Vital Signs Temp 98.1 F 04/25/19 16:57 Pulse 84 04/25/19 18:13 Resp 18 04/25/19 18:13 BP 134/82 04/25/19 18:13 Pulse Ox 98 04/25/19 18:13 Departure - Departure Time of Disposition: 17:56 Disposition: Home, Self-Care 01 Condition: Good Clinical Impression: Encounter for wound re-check - Discharge Information Instructions: Medical Screening Exam Referrals: PCP,None [Primary Care Provider] - Forms: ED Department Discharge Additional Instructions: The following information is given to patients seen in the emergency department who are being discharged to home. This information is to outline your options for follow-up care. We provide all patients seen in our emergency department with a follow-up referral. The need for follow-up, as well as the timing and circumstances, are variable depending upon the specifics of your emergency department visit. If you don't have a primary care physician on staff, we will provide you with a referral. We always advise you to contact your personal physician following an emergency department visit to inform them of the circumstance of the visit and for follow-up with them and/or the need for any referrals to a consulting specialist. The emergency department will also refer you to a specialist when appropriate. This referral assures that you have the opportunity for follow-up care with a specialist. All of these measure are taken in an effort to provide you with optimal care, which includes your follow-up. Under all circumstances we always encourage you to contact your private physician who remains a resource for coordinating your care. When calling for follow-up care, please make the office aware that this follow-up is from your recent emergency room visit. If for any reason you are refused follow-up, please contact the [facility] at and asked to speak to the emergency department charge nurse. [facility] [address] [place] [address] [id number] [id number] Change dressing daily as instructed Follow up with psych rn Return to ED As needed as discussed Sepsis Event Note - Evaluation Sepsis Screening Result: No Definite Risk - Focused Exam Date Exam was Performed: 05/19/19 Time Exam was Performed: 11:38
[2019-04-25 18:14] VITALS: BP 134/82; PULSE 84
== END 2019-04-25 18:18 | disposition home or self-care (01) ==
LOC: MW.ED 16:37
DX: Z48.817 Encounter for surgical aftercare following surgery on the skin and subcutaneous tissue (principal); Z88.0 Allergy status to penicillin; Z88.2 Allergy status to sulfonamides
CPT/HCPCS: 99282; 99283

== ENCOUNTER 2020-11-08 06:56 | Day surgery (SDC) | payer MEDICAID, OTHER ==
[~2020-11-08 06:56] MED LIST changes: -Clindamycin Phosphate in D5W 600 MG in Premix Bag 50 BAG IV ONE; +Clindamycin Phosphate in D5W 900 MG in Premix Bag 1 BAG IV SCH; -Dexamethasone 4 MG/ML 5 ML MDV ONE; +GENTAMICIN IV ONE; +Gentamicin Pediatric 10 MG/ML 2 ML SDV IV ONE; -Glycopyrrolate 0.2 MG/ML SDV ONE; -Lactated Ringers 1,000 ML IV SCH; -Midazolam 1 MG/ML 2 ML SDV ONE; -Neostigmine Methylsulfate 1 MG/ML 5 ML Syringe ONE; -Ondansetron 4 MG/2 ML SDV ONE; -Propofol 200 MG/20 ML SDV ONE; +SODIUM CHLORIDE 0.9% IV ONE; -Succinylcholine 200 MG/10 ML MDV ONE
[2020-11-08] MEDS ORDERED: Morphine 2 MG/ML SYRINGE IVPUSH PRN (07:24)
[2020-11-08] MEDS ORDERED: Naloxone 0.4 MG/ML Syringe IVPUSH PRN (07:24)
[2020-11-08] MEDS ORDERED: Metoclopramide 10 MG/2 ML SDV IVPUSH PRN (07:24)
[2020-11-08] MEDS ORDERED: fentaNYL 100 MCG/2 ML SDV IVPUSH PRN (07:24)
[2020-11-08] MEDS ORDERED: HYDROmorphone 2 MG/ML Syringe IVPUSH PRN (07:24)
[2020-11-08] MEDS ORDERED: Albuterol 0.083% 2.5 MG/3 ML Neb Soln NEB PRN (07:24)
[2020-11-08] MEDS ORDERED: Ondansetron 4 MG/2 ML SDV IVPUSH PRN (07:24)
[2020-11-08] MEDS ORDERED: Scopolamine 1.5 MG Transdermal Patch ONE (07:48)
[2020-11-08] MEDS ORDERED: Methylene Blue 50 MG/10 ML Ampule ONE (07:57)
[2020-11-08] MEDS ORDERED: Bupivacaine 0.25% 10 ML SDV ONE (07:57)
[2020-11-08] MEDS ORDERED: Fluorescein 5 ML Vial ONE (07:58)
[2020-11-08] MEDS ORDERED: Octyl 2-Cyanoacrylate 1 Tube ONE (07:58)
[2020-11-08 07:59] LABS: BLOOD UREA NITROGEN,BUN 11 mg/dL (7.0-18.0); CARBON DIOXIDE,CO2 26.4 mmol/L (21.0-32.0); CHLORIDE,CL 106 mmol/L (98-107); GLUCOSE RANDOM 104 mg/dL (74-106); POTASSIUM,K 3.8 mmol/L (3.5-5.1); SODIUM,NA 141 mmol/L (136-145)
[2020-11-08] MEDS ORDERED: Dexmedetomidine 200 MCG/2 ML SDV ONE (08:03)
[2020-11-08] MEDS ORDERED: Lidocaine 2% 5 ML SDV ONE (08:03)
[2020-11-08] MEDS ORDERED: Ondansetron 4 MG/2 ML SDV ONE (08:03)
[2020-11-08] MEDS ORDERED: Metoclopramide 10 MG/2 ML SDV ONE (08:03)
[2020-11-08] MEDS ORDERED: Sugammadex Sodium 200 MG/2 ML VIAL ONE (08:03)
[2020-11-08] MEDS ORDERED: Rocuronium Bromide 50 MG/5 ML Syringe ONE ×2 (08:03→10:06)
[2020-11-08] MEDS ORDERED: Dexamethasone 4 MG/ML 5 ML MDV ONE (08:03)
[2020-11-08] MEDS ORDERED: Glycopyrrolate 0.2 MG/ML SDV ONE (08:03)
[2020-11-08] MEDS ORDERED: fentaNYL 250 MCG/5 ML SDV ONE (08:03)
[2020-11-08] MEDS ORDERED: Ketamine 500 mg/10 ML MDV ONE (08:03)
[2020-11-08] MEDS ORDERED: Sodium Chloride 0.9% 20 ML ONE (08:05)
--- NOTE | 2020-11-08 08:05 | PCM.PREANE ---
Preanesthetic Assessment - Anesthesia/Transfusion/Family Hx Anesthesia History: Prior Anesthesia Without Reaction Other Type of Anesthesia Reaction Comment: states nausea after anesthesia Transfusion History: No Prior Transfusion(s) - Physical Assessment Vital Signs: Last Vital Signs Temp 98.1 F 11/08/20 07:25 Pulse 69 11/08/20 07:25 Resp 16 11/08/20 07:25 BP 125/80 11/08/20 07:25 Pulse Ox 99 11/08/20 07:25 Height: 5 ft 5 in Weight: 189 lb - Lab Values: Laboratory Last Values WBC 4.63 K/uL (4.0-11.0) 11/08/20 07:25 RBC 4.72 M/uL (4.30-5.90) 11/08/20 07:25 Hgb 13.4 g/dL (12.0-16.0) 11/08/20 07:25 Hct 39.4 % (36.0-46.0) 11/08/20 07:25 MCV 83.5 fL (80.0-98.0) 11/08/20 07:25 MCH 28.4 pg (27.0-32.0) 11/08/20 07:25 MCHC 34.0 g/dL (31.0-37.0) 11/08/20 07:25 RDW Std Deviation 39.7 fl (28.0-62.0) 11/08/20 07:25 RDW Coeff of Radha 13 % (11.0-15.0) 11/08/20 07:25 Plt Count 232 K/uL (150-400) 11/08/20 07:25 MPV 10.10 fL (7.40-12.00) 11/08/20 07:25 Nucleated RBC % 0.0 /100WBC 11/08/20 07:25 Nucleated RBCs # 0 K/uL 11/08/20 07:25 - Allergies Allergies/Adverse Reactions: Allergies Allergy/AdvReac Type Severity Reaction Status Date / Time Penicillins Allergy Hives Verified 11/02/20 08:15 Sulfa (Sulfonamide Allergy Hives Verified 11/02/20 08:15 Antibiotics) PreAnesthesia Questionnaire HEENT History: Reports: Other (See Below) Other HEENT History: wears glasses Cardiovascular History: Reports: None Respiratory History: Reports: None Gastrointestinal History: Reports: Irritable Bowel Syndrome, Other (See Below) Other Gastrointestinal History: occasional heartburn Genitourinary History: Reports: None 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 was removed. Dermatologic History: Reports: Eczema - Infectious Disease History Infectious Disease History: Reports: Chicken Pox - Past Surgical History Head Surgeries/Procedures: Reports: None HEENT Surgical History: Reports: Adenoidectomy, Tonsillectomy Cardiovascular Surgical History: Reports: None Respiratory Surgical History: Reports: None GI Surgical History: Reports: Cholecystectomy, Hernia, Abdominal, Other (See Below) Other GI Surgeries/Procedures: hx lap giorgi with umbilical hernia repair Female Surgical History: Reports: Section, LEEP, Other (See Below) Other Female Surgeries/Procedures: hx of cervical cerclage, hx of percutane ous intrauterine laser of placental blood vessel to correct twin to twin transfusion, Endocrine Surgical History: Reports: None Neurological Surgical History: Reports: None Musculoskeletal Surgical History: Reports: Other (See Below) Other Musculoskeletal Surgeries/Procedures:: removal of benign tumor from chest Oncologic Surgical History: Reports: None Dermatological Surgical History: Reports: None - SUBSTANCE USE Tobacco Use Status *Q: Never Tobacco User - HOME MEDS Home Medications: Home Meds . [No Known Home Meds] 11/02/20 [History] - CURRENT (IN HOUSE) MEDS Current Meds: Current Medications Albuterol (Albuterol 0.083% 2.5 Mg/3 Ml Neb Soln) 2.5 mg NEB ONETIME PRN PRN Reason: Wheezing Droperidol (Droperidol 5 Mg/2 Ml Sdv) 0.625 mg IVPUSH ONETIME PRN PRN Reason: Nausea/Vomiting Fentanyl (Fentanyl 100 Mcg/2 Ml Sdv) 50 mcg IVPUSH Q5M PRN PRN Reason: Pain (mild 1-3) Hydromorphone HCl (Hydromorphone 2 Mg/Ml Syringe) 1 mg IVPUSH Q10M PRN PRN Reason: Pain (moderate 4-6) Clindamycin Phosphate 900 mg/ (Premix) 50 mls @ 89.286 mls/hr IV ONETIME PATSY Metoclopramide HCl (Metoclopramide 10 Mg/2 Ml Sdv) 10 mg IVPUSH ONETIME PRN PRN Reason: Nausea/Vomiting Morphine Sulfate (Morphine 2 Mg/Ml Syringe) 2 mg IVPUSH Q10M PRN PRN Reason: Pain (severe 7-10) Naloxone HCl (Naloxone 0.4 Mg/Ml Syringe) 0.1 mg IVPUSH ASDIRECTED PRN PRN Reason: Respiratory Depression Ondansetron HCl (Ondansetron 4 Mg/2 Ml Sdv) 4 mg IVPUSH ONETIME PRN PRN Reason: Nausea/Vomiting Sodium Chloride (Sodium Chloride 0.9% 10 Ml Syringe) 10 ml FLUSH ASDIRECTED PRN PRN Reason: Keep Vein Open Sodium Chloride (Sodium Chloride 0.9% 2.5 Ml Syringe) 2.5 ml FLUSH ASDIRECTED PRN PRN Reason: Keep Vein Open Sodium Chloride (Sodium Chloride 0.9% 10 Ml Sdv) 10 ml IV ASDIRECTED PRN PRN Reason: IV Use Discontinued Medications Gentamicin Sulfate 343 mg/ (Sodium Chloride) 108.575 mls @ 217.15 mls/hr IV ONE TIME ONE Stop: 11/08/20 05:29 Scopolamine (Scopolamine 1.5 Mg Transdermal Patch) Confirm Administered Dose 1.5 mg .ROUTE .STK-MED ONE Stop: 11/08/20 07:49
[2020-11-08] MEDS ORDERED: Ketorolac 30 MG/ML SDV ONE (08:08)
[2020-11-08] MEDS ORDERED: Propofol 200 MG/20 ML SDV ONE ×2 (08:09→09:17)
[2020-11-08] MEDS ORDERED: Furosemide 40 MG/4 ML VIAL ONE (10:08)
[2020-11-08] MEDS ORDERED: Promethazine 25 MG/ML SDV IM PRN (10:31)
[2020-11-08] MEDS ORDERED: Simethicone 80 MG Tab.Chew PO ONE (10:31)
[2020-11-08] MEDS ORDERED: Belladonna Alkaloids/Opium 16.2-30 MG Supp RECTAL PRN (10:31)
[2020-11-08] MEDS ORDERED: Ketorolac 30 MG/ML SDV IVPUSH ONE (10:31)
[2020-11-08] MEDS ORDERED: Morphine 4 MG/ML Syringe IVPUSH PRN (10:31)
[2020-11-08] MEDS ORDERED: Acetaminophen/oxyCODONE 325-5 MG Tab PO PRN (10:31)
--- NOTE | 2020-11-08 10:40 | PCM.OPNOTE ---
- General Post-Op/Procedure Note Date of Surgery/Procedure: 11/08/20 Operative Procedure(s): LAVH/bilateral salpingectomy/cystoscopy Findings: Normal appearing ovaries. Uterovesicle adhesions. Bilateral patent ureters Pre Op Diagnosis: Menorrhagia Post-Op Diagnosis: Same Anesthesia Technique: General ET Tube Primary Surgeon: Elvia Adan Detasseling Crew Supervisor: Chula Marcial Fluid Replacement, Intraop: 850 EBL in mLs: 50 Complications: none known Condition: Stable Free Text/Narrative:: Dictation [id number]
--- NOTE | 2020-11-08 10:41 | PCM.POSTAN ---
POST ANESTHESIA ASSESSMENT - MENTAL STATUS Mental Status: Alert, Oriented - VITAL SIGNS Vital Signs: Last Vital Signs Temp 36.8 C 11/08/20 10:34 Pulse 63 11/08/20 10:34 Resp 19 11/08/20 10:34 BP 103/57 L 11/08/20 10:34 Pulse Ox 100 11/08/20 10:34 - RESPIRATORY Respiratory Status: Respiratory Rate WNL, Airway Patent, O2 Saturation Stable - CARDIOVASCULAR CV Status: Pulse Rate WNL, Blood Pressure Stable - GASTROINTESTINAL GI Status: No Symptoms - POST OP HYDRATION Hydration Status: Adequate & Stable
--- NOTE | 2020-11-08 10:42 | PCM48HPAN ---
Post Anesthesia Note - EVALUATION WITHIN 48HRS OF ANESTHETIC Vital Signs in Normal Range: Yes Patient Participated in Evaluation: Yes Respiratory Function Stable: Yes Airway Patent: Yes Cardiovascular Function Stable: Yes Hydration Status Stable: Yes Pain Control Satisfactory: Yes Nausea and Vomiting Control Satisfactory: Yes Mental Status Recovered: Yes Vital Signs: Last Vital Signs Temp 36.8 C 11/08/20 10:34 Pulse 63 11/08/20 10:38 Resp 20 11/08/20 10:38 BP 107/61 11/08/20 10:38 Pulse Ox 100 11/08/20 10:38
[2020-11-08] MEDS ORDERED: Meperidine PF 25 MG/ML Syringe IVPUSH PRN (10:51)
[2020-11-08] MEDS ORDERED: Meperidine PF 25 MG/ML Syringe ONE (10:51)
[2020-11-08] MEDS: Ondansetron 4 MG/2 ML SDV IVPUSH PRN ×2 (12:36→20:32)
[2020-11-08] MEDS: Acetaminophen/oxyCODONE 325-5 MG Tab PO PRN ×2 (12:39→20:28)
--- NOTE | 2020-11-08 13:35 | OR ---
SURGEON: Elvia Adan M.D. DATE OF PROCEDURE: 11/08/2020 PREOPERATIVE DIAGNOSIS: Menorrhagia. POSTOPERATIVE DIAGNOSIS: Menorrhagia. PROCEDURES: Laparoscopic-assisted vaginal hysterectomy, bilateral salpingectomy, cystoscopy. PRIMARY SURGEON: Elvia Adan M.D. CODING ASSISTANT: Chula Marcial M.D. ANESTHESIA: General endotracheal anesthesia. FLUIDS: 850 mL of crystalloid. ESTIMATED BLOOD LOSS: 50 mL. COMPLICATIONS: None known. FINDINGS: Mildly enlarged uterus. Normal-appearing ovaries. Uterovesical adhesions noted. With cystoscopy, ureters appear patent with fluorescein-dyed urine seen streaming from them. DISPOSITION: The patient to PACU in stable condition. SPECIMEN: To pathology. PROCEDURE DETAILS: Zoila is a 30-year-old female, who has found ongoing difficulties with menorrhagia. At this time, she wants to proceed with definitive surgical intervention. Risks of procedure have been discussed. Proper consent obtained. The patient was taken to the operating room where she underwent general endotracheal anesthesia, was placed in modified dorsal lithotomy position, prepped and draped in the usual sterile fashion. SCDs to the lower extremities. Burroughs to gravity. Received antibiotics prophylactically. Time-out performed. The bladder was backfilled with 40 mL of methylene blue and clamped. Speculum was introduced in the vagina. The cervix was grasped with an Allis clamp. Cervix gently dilated to 5 mm and a Donald uterine manipulator was gently placed. The balloon insufflated. All instruments other than the manipulator was now gently removed. Gloves changed. Attention turned abdominally. Infraumbilically, 0.25% Marcaine was introduced. Please see nurse's notes for total amount dispensed during the procedure. A 5 mm midline sagittal incision was created. Anterior abdominal wall tented upward. A Veress needle was gently introduced. Saline hanging drop test was performed. Pneumoperitoneum was achieved. The Veress needle was removed. Trocar was now introduced and laparoscope visualized peritoneal contents. Left lower quadrant and right lower quadrant trocars were now placed under direct visualization after prepping these regions with 0.25% Marcaine and creating 5 mm skin incisions. The uterus was mobile overall. There were some uterovesical adhesions noted as well as few tubo-ovarian adhesions. The left fimbriated end of the fallopian tube was now grasped. The ureter was seen peristalsing nicely away from the operative field. In similar fashion, performed on the right side. The left fallopian tube at the fimbriated end was again grasped and a salpingectomy was performed up to the level of the cornua. Remaining pedicle of the utero tubo-ovarian pedicle was now able to be secured with LigaSure, cauterized, and transected. Further pedicle incorporating the base of the median aspect of the broad ligament was able to be secured, cauterized, and transected now through the round ligament, to the remainder of the broad ligament, to the level of the cardinal ligament, which was secured, cauterized, and transected. A bladder flap was now initially created dissecting through the fairly dense adhesions along the uterus using LigaSure. The base of the cardinal ligaments was able to be secured, cauterized, and transected. In similar fashion, performed on the patient's right side. The bladder was now further hydrodissected away from the lower uterine segment, cervix. Attention was now turned vaginally. All laparoscopic instruments were removed. Pneumoperitoneum was relieved. The patient's hips and knees were flexed slightly. Weighted speculum, anterior [place] sidewall retractors placed. Cervix grasped with Cornelio clamp. Cervix was cauterized with Bovie cautery. Anteriorly and posteriorly, the overlying mucosa was dissected away from the underlying peritoneum. Posterior peritoneum was entered sharply and longer weighted speculum replaced the shorter anteriorly. Peritoneum was also entered. Catrachita was now utilized to mobilize the bladder away from the operative field and the Burroughs catheter was released with the bladder drained. Mary clamp was utilized on either side to secure the uterosacral ligaments, transected, and suture ligated. Further pedicle with the remainder of the cardinal ligament was able to be secured on either side, transected, and suture ligated. The uterus and fallopian tubes were now exteriorized, handed out to the electroencephalographic technician to be sent to Pathology. The pedicles were inspected, found to be hemostatic. The uterosacral ligaments on either side were plicated to the vaginal apex. The cuff was closed using 0 Vicryl in continuous running locked fashion. The cuff was inspected and found to be hemostatic. Burroughs balloon was now desufflated, the catheter was removed. Cystoscope was introduced into the bladder using normal saline as distention media. The dome of the bladder was able to be visualized followed by the trigone. The left ureteral orifice followed by the right ureteral orifice able to be visualized and fluorescein-dyed urine was seen streaming from them helping to ensure ureteral patency. The bladder was now drained. Burroughs catheter was replaced. Vaginal cuff once again inspected, found to be hemostatic. Gloves changed. Attention turned abdominally. Pneumoperitoneum was once again obtained. The pedicles were now closely inspected, irrigated, and suction dried. They appeared hemostatic. Once again, the ovaries appeared normal. After copiously irrigating the pelvis and visualizing the pedicles, which appeared hemostatic. The pelvis was suction dried. The pneumoperitoneum was released. The trocars of the right and left lower quadrants were removed under direct visualization followed by removal of the infraumbilical trocar. The skin was reapproximated using 4-0 Monocryl in a subcuticular fashion. Sponge, instrument, and needle counts correct x2. The patient tolerated the procedure well overall. She will go to PACU in stable condition. ISABEL / GLORY /[id number]
[2020-11-08] MEDS: Ketorolac 15 MG/ML SDV IVPUSH SCH ×2 (17:33→23:12)
--- NOTE | 2020-11-08 17:34 | PCM.SN.2 ---
- Free Text/Narrative Note: Patient doing well, nausea and pain improved. VS are stable. Explained intraop findings and procedure. Continue postoperative cares. May remove scott this evening. Labs in am.
[2020-11-08] MEDS: Docusate Sodium 100 MG Cap PO SCH (20:27)
[2020-11-09] MEDS: Acetaminophen/oxyCODONE 325-5 MG Tab PO PRN ×2 (02:34→07:12)
[2020-11-09] MEDS: Ketorolac 15 MG/ML SDV IVPUSH SCH ×2 (05:03→10:54)
[2020-11-09 06:38] LABS: CARBON DIOXIDE,CO2 27.1 mmol/L (21.0-32.0); POTASSIUM,K 4.3 mmol/L (3.5-5.1)
--- NOTE | 2020-11-09 08:58 | PCM.SURGPN ---
- General Info Date of Service: 11/09/20 POD#: 1 Functional Status: Reports: Pain Controlled, Tolerating Diet, Ambulating, Urinating - Review of Systems General: Reports: Fatigue. Denies: Fever, Weakness Pulmonary: Denies: Shortness of Breath Cardiovascular: Denies: Chest Pain, Palpitations, Lightheadedness Gastrointestinal: Reports: Abdominal Pain (mild cramping low abdomen). Denies: Nausea, Vomiting Genitourinary: Reports: No Symptoms Musculoskeletal: Reports: No Symptoms Skin: Reports: No Symptoms Neurological: Reports: No Symptoms Psychiatric: Reports: No Symptoms - Patient Data Vitals - Most Recent: Last Vital Signs Temp 36.6 C 11/09/20 05:07 Pulse 62 11/09/20 05:07 Resp 14 11/09/20 05:07 BP 114/66 11/09/20 05:07 Pulse Ox 95 11/09/20 05:07 Weight - Most Recent: 85.729 kg I&O - Last 24 Hours: Intake & Output 11/08/20 11/09/20 11/09/20 22:59 06:59 14:59 Intake Total 120 2120 Output Total 1200 1800 Balance -1080 320 Lab Results Last 24 Hrs: Laboratory Results - last 24 hr 11/09/20 11/09/20 Range/Units 05:50 05:50 WBC 9.53 (4.0-11.0) K/uL RBC 4.30 (4.30-5.90) M/uL Hgb 12.2 (12.0-16.0) g/dL Hct 35.9 L (36.0-46.0) % MCV 83.5 (80.0-98.0) fL MCH 28.4 (27.0-32.0) pg MCHC 34.0 (31.0-37.0) g/dL RDW Std Deviation 39.8 (28.0-62.0) fl RDW Coeff of Radha 13 (11.0-15.0) % Plt Count 243 (150-400) K/uL MPV 10.60 (7.40-12.00) fL Neut % (Auto) 82.6 H (48.0-80.0) % Lymph % (Auto) 10.0 L (16.0-40.0) % [place] % (Auto) 7.3 (0.0-15.0) % Eos % (Auto) 0.0 (0.0-7.0) % Baso % (Auto) 0.1 (0.0-1.5) % Neut # (Auto) 7.9 H (1.4-5.7) K/uL Lymph # (Auto) 1.0 (0.6-2.4) K/uL [place] # (Auto) 0.7 (0.0-0.8) K/uL Eos # (Auto) 0.0 (0.0-0.7) K/uL Baso # (Auto) 0.0 (0.0-0.1) K/uL Nucleated RBC % 0.0 /100WBC Nucleated RBCs # 0 K/uL Sodium 136 (136-145) mmol/L Potassium 4.3 (3.5-5.1) mmol/L Chloride 102 (98-107) mmol/L Carbon Dioxide 27.1 (21.0-32.0) mmol/L BUN 9 (7.0-18.0) mg/dL Creatinine 1.1 H (0.6-1.0) mg/dL Est Cr Clr Drug Dosing 68.52 mL/min Estimated GFR (MDRD) 59.1 ml/min Glucose 131 H (74-106) mg/dL Calcium 8.3 L (8.5-10.1) mg/dL Med Orders - Current: Current Medications Belladonna Alkaloids/Opium (Belladonna Alkaloids/Opium 16.2-30 Mg Supp) 1 supp RECTAL Q4H PRN PRN Reason: Abdominal Pain Docusate Sodium (Docusate Sodium 100 Mg Cap) 100 mg PO BID [facility] Last Admin: 11/08/20 20:27 Dose: 100 mg Documented by: Clindamycin Phosphate 900 mg/ (Premix) 50 mls @ 89.286 mls/hr IV ONETIME [facility] Last Admin: 11/08/20 08:46 Dose: 89.286 mls/hr Documented by: Ketorolac Tromethamine (Ketorolac 15 Mg/Ml Sdv) 15 mg IVPUSH Q6H [facility] Stop: 11/13/20 11:01 Last Admin: 11/09/20 05:03 Dose: 15 mg Documented by: Morphine Sulfate (Morphine 4 Mg/Ml Syringe) 4 mg IVPUSH Q2H PRN PRN Reason: Pain (severe 7-10) Last Admin: 11/08/20 14:18 Dose: 4 mg Documented by: Ondansetron HCl (Ondansetron 4 Mg/2 Ml Sdv) 4 mg IVPUSH Q6H PRN PRN Reason: Nausea/Vomiting Last Admin: 11/08/20 20:32 Dose: 4 mg Documented by: Oxycodone/Acetaminophen (Acetaminophen/Oxycodone 325-5 Mg Tab) 1 tab PO Q4H PRN PRN Reason: Pain (moderate 4-6) Oxycodone/Acetaminophen (Acetaminophen/Oxycodone 325-5 Mg Tab) 2 tab PO Q4H PRN PRN Reason: Pain (moderate 4-6) Last Admin: 11/09/20 07:12 Dose: 2 tab Documented by: Promethazine HCl (Promethazine 25 Mg/Ml Sdv) 25 mg IM Q6H PRN PRN Reason: Nausea/Vomiting Sodium Chloride (Sodium Chloride 0.9% 10 Ml Syringe) 10 ml FLUSH ASDIRECTED PRN PRN Reason: Keep Vein Open Sodium Chloride (Sodium Chloride 0.9% 2.5 Ml Syringe) 2.5 ml FLUSH ASDIRECTED PRN PRN Reason: Keep Vein Open Last Admin: 11/08/20 20:32 Dose: 2.5 ml Documented by: Sodium Chloride (Sodium Chloride 0.9% 10 Ml Sdv) 10 ml IV ASDIRECTED PRN PRN Reason: IV Use Discontinued Medications Albuterol (Albuterol 0.083% 2.5 Mg/3 Ml Neb Soln) 2.5 mg NEB ONETIME PRN PRN Reason: Wheezing Bupivacaine HCl (Bupivacaine 0.25% 10 Ml Sdv) Confirm Administered Dose 20 ml .ROUTE .STK-MED ONE Stop: 11/08/20 07:58 Dexamethasone (Dexamethasone 4 Mg/Ml 5 Ml Mdv) Confirm Administered Dose 20 mg .ROUTE .STK-MED ONE Stop: 11/08/20 08:04 Dexmedetomidine HCl (Dexmedetomidine 200 Mcg/2 Ml Sdv) Confirm Administered Dose 200 mcg .ROUTE .STK-MED ONE Stop: 11/08/20 08:04 Droperidol (Droperidol 5 Mg/2 Ml Sdv) 0.625 mg IVPUSH ONETIME PRN PRN Reason: Nausea/Vomiting Fentanyl (Fentanyl 100 Mcg/2 Ml Sdv) 50 mcg IVPUSH Q5M PRN PRN Reason: Pain (mild 1-3) Last Admin: 11/08/20 12:14 Dose: 50 mcg Documented by: Fentanyl (Fentanyl 250 Mcg/5 Ml Sdv) Confirm Administered Dose 250 mcg .ROUTE .STK-MED ONE Stop: 11/08/20 08:04 Fluorescein Sodium (Fluorescein 5 Ml Vial) Confirm Administered Dose 5 ml .ROUTE .STK-MED ONE Stop: 11/08/20 07:59 Furosemide (Furosemide 40 Mg/4 Ml Vial) Confirm Administered Dose 40 mg .ROUTE .STK-MED ONE Stop: 11/08/20 10:09 Glycopyrrolate (Glycopyrrolate 0.2 Mg/Ml Sdv) Confirm Administered Dose 0.2 mg .ROUTE .STK-MED ONE Stop: 11/08/20 08:04 Hydromorphone HCl (Hydromorphone 2 Mg/Ml Syringe) 1 mg IVPUSH Q10M PRN PRN Reason: Pain (moderate 4-6) Gentamicin Sulfate 343 mg/ (Sodium Chloride) 108.575 mls @ 217.15 mls/hr IV ONETIME ONE Stop: 11/08/20 05:29 Last Admin: 11/08/20 14:53 Dose: Not Given Documented by: Acetaminophen (Ofirmev 1000 Mg/100 Ml) Confirm Administered Dose 100 mls @ as directed .ROUTE .STK-MED ONE Stop: 11/08/20 08:03 Sodium Chloride (Normal Saline) Confirm Administered Dose 20 mls @ as directed .ROUTE .STK-MED ONE Stop: 11/08/20 08:06 Ketamine HCl (Ketamine 500 Mg/10 Ml Mdv) Confirm Administered Dose 500 mg .ROUTE .STK-MED ONE Stop: 11/08/20 08:04 Ketorolac Tromethamine (Ketorolac 30 Mg/Ml Sdv) Confirm Administered Dose 30 mg .ROUTE .STK-MED ONE Stop: 11/08/20 08:09 Ketorolac Tromethamine (Ketorolac 30 Mg/Ml Sdv) 15 mg IVPUSH ONETIME ONE Stop: 11/08/20 10:32 Last Admin: 11/08/20 15:05 Dose: Not Given Documented by: Lidocaine (Lidocaine 2% 5 Ml Sdv) Confirm Administered Dose 5 ml .ROUTE .STK-MED ONE Stop: 11/08/20 08:04 Meperidine HCl (Meperidine Pf 25 Mg/Ml Syringe) [facility] Stop: 11/08/20 10:52 Last Admin: 11/08/20 10:54 Dose: 12.5 mg Documented by: Meperidine HCl (Meperidine Pf 25 Mg/Ml Syringe) 25 mg IVPUSH Q2H PRN PRN Reason: Shivering Methylene Blue (Methylene Blue 50 Mg/10 Ml Ampule) Confirm Administered Dose 50 mg .ROUTE .[employer]-MED ONE Stop: 11/08/20 07:58 Metoclopramide HCl (Metoclopramide 10 Mg/2 Ml Sdv) 10 mg IVPUSH ONETIME PRN PRN Reason: Nausea/Vomiting Metoclopramide HCl (Metoclopramide 10 Mg/2 Ml Sdv) Confirm Administered Dose 10 mg .ROUTE .CHIC.TVMED ONE Stop: 11/08/20 08:04 Morphine Sulfate (Morphine 2 Mg/Ml Syringe) 2 mg IVPUSH Q10M PRN PRN Reason: Pain (severe 7-10) Naloxone HCl (Naloxone 0.4 Mg/Ml Syringe) 0.1 mg IVPUSH ASDIRECTED PRN PRN Reason: Respiratory Depression Octyl Cyanoacrylate (Octyl 2-Cyanoacrylate 1 Tube) Confirm Administered Dose 0 applic .ROUTE .CHIC.TVMED ONE Stop: 11/08/20 07:59 Ondansetron HCl (Ondansetron 4 Mg/2 Ml Sdv) 4 mg IVPUSH ONETIME PRN PRN Reason: Nausea/Vomiting Ondansetron HCl (Ondansetron 4 Mg/2 Ml Sdv) Confirm Administered Dose 4 mg .ROUTE .[employer]-MED ONE Stop: 11/08/20 08:04 Propofol (Propofol 200 Mg/20 Ml Sdv) Confirm Administered Dose 200 mg .ROUTE .[employer]-MED ONE Stop: 11/08/20 08:10 Propofol (Propofol 200 Mg/20 Ml Sdv) Confirm Administered Dose 200 mg .ROUTE .[employer]-MED ONE Stop: 11/08/20 09:18 Rocuronium [place] (Rocuronium [place] 50 Mg/5 Ml Syringe) Confirm Administered Dose 50 mg .ROUTE .[employer]-MED ONE Stop: 11/08/20 08:04 Rocuronium [place] (Rocuronium [place] 50 Mg/5 Ml Syringe) Confirm Administered Dose 50 mg .ROUTE .STK-MED ONE Stop: 11/08/20 10:07 Scopolamine (Scopolamine 1.5 Mg Transdermal Patch) Confirm Administered Dose 1.5 mg .ROUTE .STK-MED ONE Stop: 11/08/20 07:49 Last Admin: 11/09/20 00:38 Dose: Not Given Documented by: Simethicone (Simethicone 80 Mg Tab.Chew) 160 mg PO DAILY ONE Stop: 11/08/20 10:32 Last Admin: 11/08/20 18:27 Dose: Not Given Documented by: Sugammadex Sodium (Sugammadex Sodium 200 Mg/2 Ml Vial) Confirm Administered Dose 200 mg .ROUTE .STK-MED ONE Stop: 11/08/20 08:04 - Exam Wound/Incisions: Dressing Dry and Intact General: Alert, Oriented Lungs: Normal Respiratory Effort Cardiovascular: Regular Rate, Regular Rhythm GI/Abdominal Exam: Normal Bowel Sounds, Soft Extremities: Pedal Edema (trace). No: Charlie's Sign Skin: Warm, Dry, Intact Neurological: No New Focal Deficit Psy/Mental Status: Alert, Normal Affect, Normal Mood Sepsis Event Note - Evaluation Sepsis Screening Result: No Definite Risk - Focused Exam Vital Signs: Vital Signs Temp Pulse Resp BP Pulse Ox 11/09/20 05:07 36.6 C 62 14 114/66 95 11/08/20 23:15 36.6 C 64 14 127/63 94 L - Problem List & Annotations (1) Status post laparoscopic assisted vaginal hysterectomy (LAVH) SNOMED Code(s): 032661138, 61447620, 274733799 Code(s): Z90.710 - ACQUIRED ABSENCE OF BOTH CERVIX AND UTERUS Status: Acute Current Visit: Yes - Problem List Review Problem List Initiated/Reviewed/Updated: Yes - My Orders Last 24 Hours: Active Orders 24 hr Category Date Time Status Patient Status [ADT] Routine ADT 11/08/20 10:32 Active Antiembolic Devices [RC] PER UNIT ROUTINE Care 11/08/20 10:32 Active Notify Provider Intake and Out [RC] ASDIRECTED Care 11/08/20 10:32 Active Notify Provider Vital Signs [RC] ASDIRECTED Care 11/08/20 10:32 Active Oxygen Therapy [RC] ASDIRECTED Care 11/08/20 10:32 Active RT Incentive Spirometry [RC] Q2HWA Care 11/08/20 10:32 Active Ready for Discharge [RC] PER UNIT ROUTINE Care 11/09/20 08:54 Ordered Up With Assistance [RC] PER UNIT ROUTINE Care 11/08/20 10:32 Active Up ad Vee [RC] PER UNIT ROUTINE Care 11/08/20 10:32 Active Urinary Catheter Removal [RC] Per Unit Routine Care 11/08/20 10:32 Active Vital Signs [RC] Q4H Care 11/08/20 10:32 Active Regular Diet [DIET] Diet 11/08/20 Dinner Active Acetaminophen/oxyCODONE [Percocet 325-5 MG] Med 11/08/20 10:31 Active 1 tab PO Q4H PRN Acetaminophen/oxyCODONE [Percocet 325-5 MG] Med 11/08/20 10:31 Active 2 tab PO Q4H PRN Belladonna/Opium [B & O Supprettes No. 15A] Med 11/08/20 10:31 Active 1 supp RECTAL Q4H PRN Docusate Sodium [Colace] Med 11/08/20 21:00 Active 100 mg PO BID Ketorolac [Toradol] Med 11/08/20 17:00 Active 15 mg IVPUSH Q6H Morphine Med 11/08/20 10:31 Active 4 mg IVPUSH Q2H PRN Ondansetron [Zofran] Med 11/08/20 10:31 Active 4 mg IVPUSH Q6H PRN Promethazine [Phenergan] Med 11/08/20 10:31 Active 25 mg IM Q6H PRN Peripheral IV Discontinue [OM.PC] Routine Oth 11/08/20 10:32 Ordered Sequential Compression Device [OM.PC] Per Unit Routine Oth 11/08/20 10:32 Ordered Resuscitation Status Routine Resus Stat 11/08/20 10:31 Ordered Medication Orders Belladonna Alkaloids/Opium (Belladonna Alkaloids/Opium 16.2-30 Mg Supp) 1 supp RECTAL Q4H PRN PRN Reason: Abdominal Pain Docusate Sodium (Docusate Sodium 100 Mg Cap) 100 mg PO BID [facility] Last Admin: 11/08/20 20:27 Dose: 100 mg Documented by: DARION Clindamycin Phosphate 900 mg/ (Premix) 50 mls @ 89.286 mls/hr IV ONETIME [facility] Last Admin: 11/08/20 08:46 Dose: 89.286 mls/hr Documented by: ERWIN Ketorolac Tromethamine (Ketorolac 15 Mg/Ml Sdv) 15 mg IVPUSH Q6H [facility] Stop: 11/13/20 11:01 Last Admin: 11/09/20 05:03 Dose: 15 mg Documented by: Admin: 11/08/20 23:12 Dose: 15 mg Documented by: Admin: 11/08/20 17:33 Dose: 15 mg Documented by: MARIANN Morphine Sulfate (Morphine 4 Mg/Ml Syringe) 4 mg IVPUSH Q2H PRN PRN Reason: Pain (severe 7-10) Last Admin: 11/08/20 14:18 Dose: 4 mg Documented by: ARELI Ondansetron HCl (Ondansetron 4 Mg/2 Ml Sdv) 4 mg IVPUSH Q6H PRN PRN Reason: Nausea/Vomiting Last Admin: 11/08/20 20:32 Dose: 4 mg Documented by: Admin: 11/08/20 12:36 Dose: 4 mg Documented by: MARIANN Oxycodone/Acetaminophen (Acetaminophen/Oxycodone 325-5 Mg Tab) 1 tab PO Q4H PRN PRN Reason: Pain (moderate 4-6) Oxycodone/Acetaminophen (Acetaminophen/Oxycodone 325-5 Mg Tab) 2 tab PO Q4H PRN PRN Reason: Pain (moderate 4-6) Last Admin: 11/09/20 07:12 Dose: 2 tab Documented by: Admin: 11/09/20 02:34 Dose: 2 tab Documented by: Admin: 11/08/20 20:28 Dose: 2 tab Documented by: Admin: 11/08/20 12:39 Dose: 2 tab Documented by: MARIANN Promethazine HCl (Promethazine 25 Mg/Ml Sdv) 25 mg IM Q6H PRN PRN Reason: Nausea/Vomiting Sodium Chloride (Sodium Chloride 0.9% 10 Ml Syringe) 10 ml FLUSH ASDIRECTED PRN PRN Reason: Keep Vein Open Sodium Chloride (Sodium Chloride 0.9% 2.5 Ml Syringe) 2.5 ml FLUSH ASDIRECTED PRN PRN Reason: Keep Vein Open Last Admin: 11/08/20 20:32 Dose: 2.5 ml Documented by: DARION Sodium Chloride (Sodium Chloride 0.9% 10 Ml Sdv) 10 ml IV ASDIRECTED PRN PRN Reason: IV Use - Assessment Assessment (Free Text/Narrative):: POD 1 status post LAVH/bilateral salpingectomy/cystoscopy - Plan Plan (Free Text/Narrative):: Doing well overall, pain controlled with oral pain meds. VS are stable. Creatinine up a bit this morning, but has not been drinking much water. Has no back pain other than directly low midline. Will recheck in clinic. Otherwise, tolerating a regular diet, ambulating and voiding. Discharge to home. Follow up at [facility] 2 weeks. Discharge instructions reviewed.
[2020-11-09] MEDS: Docusate Sodium 100 MG Cap PO SCH (09:12)
[2020-11-09 09:26] VITALS: BP 118/68; PULSE 75
== END 2020-11-09 11:50 | disposition home or self-care (01) ==
LOC: MW.SDS 06:56 → MW.MS 10:23 → MW.SDS 11-09 11:50
PROVIDERS: ATTEND Obstetrics & Gynecology
DX: N87.9 Dysplasia of cervix uteri, unspecified (principal); N92.0 Excessive and frequent menstruation with regular cycle; N73.6 Female pelvic peritoneal adhesions (postinfective); Z01.812 Encounter for preprocedural laboratory examination; Z20.822 Contact with and (suspected) exposure to COVID-19; Z88.2 Allergy status to sulfonamides; Z88.0 Allergy status to penicillin; E66.9 Obesity, unspecified; Z68.31 Body mass index [BMI] 31.0-31.9, adult
CPT/HCPCS: 36415; 58552; 80048; 84703; 85025; 85027; 86850; 86900; 86901; 87635; 88307; A9270; J0131; J1100; J1885; J1940; J2175; J2270; J2405; J2704; J2765; J3010; J3490; 00944; U0002

== ENCOUNTER 2024-05-25 23:14 | Emergency (ER) | payer BC, OTHER ==
[2024-05-25 23:49] LABS: APPEARANCE,URINE HAZY; BILIRUBIN,URINE NEGATIVE (NEGATIVE); COLOR,URINE YELLOW; GLUCOSE,URINE NEGATIVE (NEGATIVE); KETONES,URINE NEGATIVE (NEGATIVE); LEUKOCYTE ESTERASE,URINE MODERATE (NEGATIVE); NITRITE,URINE NEGATIVE (NEGATIVE); OCCULT BLOOD,URINE LARGE (NEGATIVE); PROTEIN,URINE NEGATIVE (NEGATIVE); UROBILINOGEN,URINE 0.2 EU/dL (<2.0)
[2024-05-25 23:56] LABS: BACTERIA,URINE FEW (NEGATIVE); EPITHELIAL CELLS,URINE FEW (NONE-FEW)
[2024-05-26] MEDS: Phenazopyridine 200 MG Tab PO ONE (00:22)
[2024-05-26] MEDS: Cefdinir 300 MG Cap PO ONE (00:22)
[2024-05-26] MEDS: Ketorolac 30 MG/ML SDV IM ONE (00:23)
[2024-05-26] MEDS: Acetaminophen 325 MG Tab PO ONE (00:23)
[2024-05-26 01:32] VITALS: BP 124/88; PULSE 90
== END 2024-05-26 01:33 | disposition home or self-care (01) ==
LOC: MW.ED 23:14
DX: N39.0 Urinary tract infection, site not specified (principal); E66.9 Obesity, unspecified; Z68.27 Body mass index [BMI] 27.0-27.9, adult; Z90.49 Acquired absence of other specified parts of digestive tract; Z90.710 Acquired absence of both cervix and uterus; Z88.0 Allergy status to penicillin; Z88.2 Allergy status to sulfonamides; Z79.899 Other long term (current) drug therapy
CPT/HCPCS: 81001; 81025; 96372; 99283; A9270; J1885